=== PATIENT | female | born 1980 | race Caucasian/White ===

== ENCOUNTER → 2019-07-29 10:55 | Outpatient (BNVA) | payer BC, SELFPAY | PROVIDERS: Family Provider Registered Nurse; PCP Registered Nurse; Referring Provider Registered Nurse; Visit Provider Internal Medicine Rheumatology | DX: M65.9 Synovitis and tenosynovitis, unspecified (principal); M25.571 Pain in right ankle and joints of right foot; M54.12 Radiculopathy, cervical region | CPT/HCPCS: 36415; 85651; 86140; 86812; 99204 ==

== ENCOUNTER 2019-08-23 11:26 | Outpatient (CLI) | payer BC, SELFPAY ==
--- NOTE | 2019-08-23 11:35 | XR_ITS ---
WS: [id number] XR cervical spine fl/ex [id number] REASON FOR EXAM: neck pain with headache FINDINGS: The disc spaces and vertebral bodies are all normal. Flexion shows limited flexion extension is normal. XR/XR cervical spine fl/ex [id number] IMPRESSION: Limited flexion changes. The disc spaces and vertebral bodies are all normal.
== END 2019-08-23 11:27 | disposition home or self-care (01) ==
LOC: RAD 11:32
PROVIDERS: Family Provider Registered Nurse; PCP Nurse Practitioner Family; Visit Provider Nurse Practitioner Family
DX: M54.2 Cervicalgia (principal); R51 Headache
CPT/HCPCS: 72040

== ENCOUNTER → 2019-09-27 12:10 | Outpatient (BNVA) | payer BC, SELFPAY | PROVIDERS: Family Provider Registered Nurse; PCP Nurse Practitioner Family; Visit Provider Nurse Practitioner Family | DX: R42 Dizziness and giddiness (principal); H60.93 Unspecified otitis externa, bilateral | CPT/HCPCS: 80053; 81000; 83735; 85025; 87400 ==

== ENCOUNTER → 2019-10-06 15:00 | Outpatient (BNVA) | payer BC, SELFPAY | PROVIDERS: Family Provider Registered Nurse; PCP Nurse Practitioner Family; Visit Provider Nurse Practitioner Family | DX: R42 Dizziness and giddiness (principal); J02.0 Streptococcal pharyngitis; R68.89 Other general symptoms and signs; H66.90 Otitis media, unspecified, unspecified ear; R53.1 Weakness; R39.9 Unspecified symptoms and signs involving the genitourinary system; H60.93 Unspecified otitis externa, bilateral | CPT/HCPCS: 87635 ==

== ENCOUNTER 2020-01-17 14:36 | Outpatient (CLI) | payer MEDICAID, SELFPAY ==
--- NOTE | 2020-01-17 16:00 | MR_ITS ---
WS: [id number] MRI CERVICAL SPINE NONCONTRAST TECHNIQUE: Sagittal T1, T2 and STIR imaging. Axial T2, gradient, and fiesta imaging. CLINICAL INFORMATION: M54.12 Radiculopathy, cervical region COMPARISON: None. FINDINGS: Straightening of the normal cervical lordosis. Cord signal is normal. C2-C3: Mild left and no significant right foraminal narrowing. Spinal canal is patent. C3-C4: Left eccentric osteophytic ridging. Mild left and no significant right foraminal narrowing. Mi ld facet arthropathy. Spinal canal is patent. C4-C5: No significant disc bulging. Spinal canal and foramen are patent. C5-C6: No significant disc bulging. Mild facet arthropathy. Spinal canal and foramen are patent. C6-C7: Mild left eccentric osteophytic ridging. Mild left and no significant right foraminal narrowin g. Spinal canal is patent. C7-T1: Normal. Visualized brain stem structures: Normal. Prevertebral soft tissues: Normal. MR/MR cervical spin wo con* [id number] IMPRESSION: 1. Normal cervical alignment. No high-grade central canal narrowing. Cord sign al is normal. 2. Mild left C3-C4 and left C6-7 bony foraminal narrowing. 3. Minimal disc bulging at C3-C4 and C4-C5 without significant central canal s tenosis.
== END 2020-01-17 14:37 | disposition home or self-care (01) ==
LOC: RADSHAW 14:39
PROVIDERS: PCP Nurse Practitioner Family; Visit Provider Nurse Practitioner Family
DX: M54.12 Radiculopathy, cervical region (principal); M48.02 Spinal stenosis, cervical region; M50.221 Other cervical disc displacement at C4-C5 level
CPT/HCPCS: 72141

== ENCOUNTER → 2020-03-07 15:38 | Outpatient (BNVA) | payer MEDICAID, SELFPAY | PROVIDERS: PCP Nurse Practitioner Family; Visit Provider Family Medicine | DX: R05 Cough (principal); Z20.828 Contact with and (suspected) exposure to other viral communicable diseases | CPT/HCPCS: 87635 ==

== ENCOUNTER → 2020-05-25 15:49 | Outpatient (BNVA) | payer MEDICAID, SELFPAY | PROVIDERS: PCP Nurse Practitioner Family; Visit Provider Internal Medicine | DX: Z20.828 Contact with and (suspected) exposure to other viral communicable diseases (principal); R13.10 Dysphagia, unspecified | CPT/HCPCS: 87635 ==

== ENCOUNTER 2020-05-29 08:20 | Day surgery (SDC) | payer MEDICAID, SELFPAY ==
[2020-05-26 13:43] VITALS: BMI 27.4
[2020-05-29 08:42] VITALS: BP 139/92; PULSE 85; RESP 18; TEMP 36.3; O2SAT 99
[2020-05-29 08:51] LABS: OR HCG Qualitative Urine Negative (Negative)
[2020-05-29] MEDS: sodium chloride 0.9% 1,000 ML 30 ML IV (08:53)
--- NOTE | 2020-05-29 08:59 | ANES.PREANE2 ---
Pre-Anesthetic Assessment Pre-Anesthetic Assessment: Height/Weight: Height 1.57 m Weight 68.039 kg Temp Pulse Resp BP Pulse Ox 97.3 F L 85 18 139/92 99 05/29/20 08:42 05/29/20 08:42 05/29/20 08:42 05/29/20 08:42 05/29/20 08:42 Preop Diagnosis: dysphagia Proposed Procedure: Operation Date: 05/29/20 09:15 Proposed Procedures p EGD 63013 r13.10(Not Applicable) - Gianluca Santos MD Familial anesthetic complications: None Was Beta Elian taken within 24 hours: N/A Last intake: Intake Last Liquid Date 05/28/20 Last Liquid Time 23:50 Last Solid Date 05/28/20 Last Solid Time 18:00 Social: Social History: No alcohol and No tobacco Exam: Pre-Anes Outpt Exam: alert, oriented x 3, clear to auscultation bilaterally and regular rate & rhythm Airway: Cervical ROM: WNL MP: 1 Dentition: Other (lower partial/wire from brace (permanent retainer)) GI: GI: GERD Comments: dysphagia Anesthetic Plan: ASA status: 1 Anesthesia: MAC Risk of > 500 ml blood loss (7ml/kg in children): No Meds/Allergies Current Medications: Current Medications Generic Name Dose Route Start Last Admin Trade Name Freq PRN Reason Stop Dose Admin Sodium Chloride 1,000 mls @ 30 ml s/hr 05/29/20 08:45 05/29/20 08:53 Sodium Chloride 0.9% IV 30 mls/hr .Q24H ERNESTO Administration PFSH Anesthesia PFSH: Medical History Abnormal Pap smear of cervix Allergic reaction Anxiety Arthralgia Breast cancer screening by mammogram Cervical radiculopathy Patient has DDD of cervical spine. She has had previous MRI a couple of years ago. She has headaches and numbness and tingling in both hands/fingers. delivery delivered Dysphagia GERD (gastroesophageal reflux disease) Headache Hearing loss in right ear Otitis externa Pelvic pain Peroneal tendinitis, right leg RMSF ([place] spotted fever) Tenosynovitis of right foot Vertigo Surgical History S/P section X2 S/P tonsillectomy Social History Smoking and tobacco status: never smoked Alcohol intake: never History of recent travel: No Female Reproductive History: Date of last menstrual period: 05/24/20 Data Anesthesia Other Labs: Laboratory Results - last 48 hr 05/29/20 08:34 Urine HCG, Qual Negative Cardiac Studies: No Data to Display
--- NOTE | 2020-05-29 09:37 | W.PM.OPSUD ---
Surgery/Procedure H&P Update DATE OF PROCEDURE: May 29, 2020 DATE H&P PERFORMED: 05/24/20 PREOP DIAGNOSIS: dysphagia PLANNED PROCEDURE: Operation Date: 05/29/20 09:15 Proposed Procedures p EGD 20041 r13.10(Not Applicable) - Gianluca Santos MD
[2020-05-29 10:07] VITALS: BP 148/94; PULSE 85; RESP 18; TEMP 36.4; O2SAT 100
[2020-05-29 10:21] VITALS: BP 114/77; PULSE 74; RESP 18; O2SAT 98
[2020-05-29 10:38] VITALS: BP 124/85; PULSE 80; RESP 18; O2SAT 98
[2020-05-29 10:58] VITALS: BP 126/81; PULSE 70; RESP 18; O2SAT 98
--- NOTE | 2020-05-29 10:59 | SUR.PHASEII ---
1055 Barium swallow scheduled for Jun 07 at 10:45 am. Pt verbalized understanding.
--- NOTE | 2020-05-29 15:12 | ANE.PACU2 ---
Inpatient post-anesthesia follow up: Airway intact: Yes Vital signs: Temperature 97.6 F Pulse Rate 70 Respiratory Rate 18 Blood Pressure 126/81 Pulse Oximetry 98 Oxygen Delivery Me thod Room Air Oxygen Flow Rate 3 Fraction of Inspir ed Oxygen Hydration adequate: Yes Nausea and vomiting: No Pain level: 2 Mental status: Baseline
== END 2020-05-29 11:00 | disposition home or self-care (01) ==
PROVIDERS: Anesthesiology; PCP Nurse Practitioner Family; Visit Provider Internal Medicine
PROC: 0DJ08ZZ Inspection of Upper Intestinal Tract, Via Natural or Artificial Opening Endoscopic (ICD-10-PCS; CPT 43235; principal; 2020-05-29 09:15)
DX: R13.10 Dysphagia, unspecified (principal); K21.9 Gastro-esophageal reflux disease without esophagitis; F41.9 Anxiety disorder, unspecified; Z79.82 Long term (current) use of aspirin
CPT/HCPCS: 12345; 43235; 84703; J2704; J7030

== ENCOUNTER → 2020-06-12 11:19 | Outpatient (BNVA) | payer MEDICAID, SELFPAY | PROVIDERS: PCP Nurse Practitioner Family; Visit Provider Obstetrics & Gynecology | DX: Z12.4 Encounter for screening for malignant neoplasm of cervix (principal) | CPT/HCPCS: 88175 ==

== ENCOUNTER 2020-06-23 08:47 | Outpatient (CLI) | payer MEDICAID, SELFPAY ==
--- NOTE | 2020-06-23 08:50 | FL_ITS ---
WS: [id number] FL barium swallow [id number] REASON FOR EXAM: R13.10 - Dysphagia, unspecified FLUOROSCOPY TIME: .9 minutes FINDINGS: The swallowing of barium was monitored fluoroscopically with spot films obtained. Course of the bariu m through the cervical and thoracic esophagus and into the stomach was monitored fluoroscopically and multiple spot images obtained. The swallowing mechanism appeared intact with no evidence of aspiration or dilatation with retention of barium. The barium flowed rapidly through the cervical and thoracic esophagus and into the stomach without de lay. There was no retention of barium in the esophagus. No hiatal hernia or distal esophageal stricture was identified. No reflux was noted. FL/FL barium swallow [id number] IMPRESSION: Normal examination as above.
== END 2020-06-23 08:48 | disposition home or self-care (01) ==
LOC: RAD 08:48
PROVIDERS: PCP Nurse Practitioner Family; Visit Provider Internal Medicine
DX: R13.10 Dysphagia, unspecified (principal)
CPT/HCPCS: 74220

== ENCOUNTER 2020-07-10 11:43 | Outpatient (CLI) | payer MEDICAID, SELFPAY ==
--- NOTE | 2020-07-10 12:00 | MM_ITS ---
WS: [id number] SCREENING DIGITAL MAMMOGRAM WITH CAD HISTORY: First breast cancer screening COMPARISON: None available. Bilateral CC and MLO views submitted. Computer aided detection analyzed. Breast composition: The breasts are heterogeneously dense, which may obscure small masses. No suspici ous masses, microcalcifications or architectural distortion. MM/[place] [id number] IMPRESSION: BI-RADS: 1-Negative FOLLOW UP: 1 Year Follow-up
== END 2020-07-10 11:44 | disposition home or self-care (01) ==
LOC: RADSHAW 11:46
PROVIDERS: PCP Nurse Practitioner Family; Visit Provider Nurse Practitioner Family
DX: Z12.31 Encounter for screening mammogram for malignant neoplasm of breast (principal)
CPT/HCPCS: 77067

== ENCOUNTER → 2020-07-12 11:54 | Outpatient (BNVA) | payer MEDICAID, SELFPAY | PROVIDERS: PCP Nurse Practitioner Family; Visit Provider Nurse Practitioner Family | DX: D64.9 Anemia, unspecified (principal); Z79.899 Other long term (current) drug therapy; M25.50 Pain in unspecified joint; R53.83 Other fatigue; K21.9 Gastro-esophageal reflux disease without esophagitis; E55.9 Vitamin D deficiency, unspecified; B37.0 Candidal stomatitis | CPT/HCPCS: 80053; 81003; 82306; 82607; 82728; 82746; 83036; 83550; 83735; 84443; 85025; 85651; 86140 ==

== ENCOUNTER 2020-07-27 12:27 | Outpatient (CLI) | payer MEDICAID, SELFPAY ==
--- NOTE | 2020-07-27 12:31 | XR_ITS ---
WS: [id number] Lumbar spine, AP, both obliques, lateral with flexion, extension and neutral position, L5-S1 spot, Clinical Data: M51.36 - Other intervertebral disc degeneration, lumbar region Comparison: None. Findings: No compression fractures or subluxation is seen. No disc space narrowing is seen. The transverse proc esses and SI joints are normal. The oblique films show no spondylolysis. On flexion and extension there is no subluxation or limitation of motion. XR/XR lumbar spine 6V w f/e [id number] Impression: 1. Negative lumbar spine. 2. Negative for spondylolysis on oblique films. 3. Negative for limitation of motion or subluxation on flexion or extension.
== END 2020-07-27 12:28 | disposition home or self-care (01) ==
PROVIDERS: PCP Nurse Practitioner Family; Visit Provider Nurse Practitioner Family
DX: M51.36 Other intervertebral disc degeneration, lumbar region (principal)
CPT/HCPCS: 72114

== ENCOUNTER → 2020-08-01 08:51 | Outpatient (BNVA) | payer MEDICAID, SELFPAY | PROVIDERS: PCP Nurse Practitioner Family; Referring Provider Nurse Practitioner Family; Visit Provider Specialist | DX: R42 Dizziness and giddiness (principal); G43.711 Chronic migraine without aura, intractable, with status migrainosus; R20.0 Anesthesia of skin; R20.2 Paresthesia of skin; G62.9 Polyneuropathy, unspecified; D51.9 Vitamin B12 deficiency anemia, unspecified; F43.10 Post-traumatic stress disorder, unspecified | CPT/HCPCS: 99205 ==

== ENCOUNTER 2020-08-01 11:13 | Outpatient (CLI) | payer MEDICAID, SELFPAY ==
[2020-08-01 12:40] LABS: C Reactive Protein 1.1 mg/L (0.0-4.9); Folate Level 17.3 ng/mL (4.8-37.3); Thyroid Stimulating Hormone 1.32 uIU/mL (0.27-4.20); Vitamin B12 560 pg/mL (232-1245)
[2020-08-01 14:05] LABS: Erythrocyte Sedimentation Rate 19 mm/hr (0-15)
[2020-08-02 14:03] LABS: CENTROMERE B ANTIBODY <1.0 NEG AI (<1.0 NEG); JO-1 ANTIBODY <1.0 NEG AI (<1.0 NEG); RNP ANTIBODY <1.0 NEG AI (<1.0 NEG); SCL-70 ANTIBODY <1.0 NEG AI (<1.0 NEG); SJOGREN'S ANTIBODY (SS-A) <1.0 NEG AI (<1.0 NEG); SM ANTIBODY <1.0 NEG AI (<1.0 NEG); SS-B <1.0 NEG AI (<1.0 NEG)
[2020-08-02 14:34] LABS: COMPLEMENT, TOTAL (CH50) >60 U/mL (31-60)
[2020-08-02 14:48] LABS: COMPLEMENT COMPONENT C3C 134 mg/dL (83-193); COMPLEMENT COMPONENT C4C 31 mg/dL (15-57)
[2020-08-02 16:04] LABS: THYROID PEROXIDASE ANTIBODIES 1 IU/mL (<9)
[2020-08-03 13:29] LABS: ANA SCREEN, IFA NEGATIVE (NEGATIVE)
[2020-08-04 12:59] LABS: Methylmalonic Acid 79 nmol/L (87-318)
[2020-08-05 00:39] LABS: DNA AB (DS) CRITHIDIA,IFA NEGATIVE (NEGATIVE)
== END 2020-08-01 11:14 | disposition home or self-care (01) ==
LOC: LAB 11:15
PROVIDERS: PCP Nurse Practitioner Family; Visit Provider Specialist
DX: D51.9 Vitamin B12 deficiency anemia, unspecified (principal); G62.9 Polyneuropathy, unspecified
CPT/HCPCS: 36415; 82607; 82746; 83921; 84443; 85651; 86140

== ENCOUNTER → 2020-08-29 07:55 | Outpatient (BNVA) | payer MEDICAID, SELFPAY | PROVIDERS: PCP Nurse Practitioner Family; Visit Provider Specialist | DX: R20.0 Anesthesia of skin (principal); R20.2 Paresthesia of skin; E55.9 Vitamin D deficiency, unspecified; M54.2 Cervicalgia; G89.29 Other chronic pain; M54.12 Radiculopathy, cervical region | CPT/HCPCS: 95910; 95913 ==

== ENCOUNTER 2020-09-04 10:52 | Outpatient (CLI) | payer MEDICAID, SELFPAY ==
--- NOTE | 2020-09-04 11:00 | MR_ITS ---
WS: [id number] MRI CERVICAL SPINE NONCONTRAST HISTORY: M54.12 - Radiculopathy, cervical region COMPARISON: 01/17/2020. Technique: Multiplanar, multisequence noncontrast imaging of the cervical spine. Normal cervical alignment with no compression fracture or significant disc space narrowing. Signal within the cervical cord is normal. Visualized posterior fossa is unremarkable. Craniocervical junction, C1 and C2 relationship, odontoid process and soft tissues are normal. C2-C3: Very mild narrowing of the LEFT foramen. C3-C4: Small osteophyte in the LEFT foramen. No significant stenosis. C4-C5: Minimal osteophytic ridging greater to the LEFT. No stenosis. C5-C6: Normal. C6-C7: Mild asymmetric osteophytic ridging greatest to the LEFT. No significant stenosis. C7-T1: Normal. Paraspinal soft tissue are normal. MR/MR cervical spin wo con* [id number] IMPRESSION: 1. No significant central or foraminal stenosis. 2. Small foraminal osteophytes greatest on the LEFT at C3-4 and C6-7. Similar to the prior study with no significant stenosis.
== END 2020-09-04 10:53 | disposition home or self-care (01) ==
LOC: RADSHAW 10:53
PROVIDERS: PCP Nurse Practitioner Family; Visit Provider Nurse Practitioner Family
DX: M54.12 Radiculopathy, cervical region (principal); M25.78 Osteophyte, vertebrae
CPT/HCPCS: 72141

== ENCOUNTER 2020-09-04 10:55 | Outpatient (CLI) | payer MEDICAID, SELFPAY ==
--- NOTE | 2020-09-04 11:45 | MR_ITS ---
WS: [id number] MRI BRAIN WITHOUT CONTRAST HISTORY: R42 - Dizziness and giddiness COMPARISON: None available. TECHNIQUE: Diffusion imaging, multiplanar T1, T2 and FLAIR imaging obtained. No evidence for acute infarct or hemorrhage. Santamaria-white matter differentiation is normal. No remote or acute infarcts are volume loss. Ventricles and extra-axial spaces are normal. No inferior displacement of cerebellar tonsils. The sella turcica and pituitary gland are unremarkabl e. Posterior fossa is also unremarkable. Dural venous sinuses and hughes of Vela demonstrate no abnormality on this unenhanced studies. Paranasal sinuses: Clear. Mastoid air cells: Normal. Calvarium and scalp: Intact. MR/MR head wo con* [id number] IMPRESSION: 1. Unremarkable noncontrast MRI brain. 2. No posterior fossa abnormalities or Chiari malformation.
== END 2020-09-04 10:56 | disposition home or self-care (01) ==
LOC: RADSHAW 10:56
PROVIDERS: PCP Nurse Practitioner Family; Visit Provider Specialist
DX: R42 Dizziness and giddiness (principal)
CPT/HCPCS: 70551

== ENCOUNTER 2020-09-05 06:00 | Outpatient (RCR) | payer MEDICAID, SELFPAY | END 2020-10-04 23:59 | disposition home or self-care (01) | LOC: WPT 06:00 | PROVIDERS: PCP Nurse Practitioner Family; Referring Provider Nurse Practitioner Family; Visit Provider Nurse Practitioner Family | DX: M54.2 Cervicalgia (principal); G89.29 Other chronic pain | CPT/HCPCS: 97110; 97161 ==

== ENCOUNTER → 2020-09-07 08:10 | Outpatient (BNVA) | payer MEDICAID, SELFPAY | PROVIDERS: PCP Nurse Practitioner Family; Visit Provider Specialist | DX: R20.0 Anesthesia of skin (principal); R20.2 Paresthesia of skin; M54.2 Cervicalgia; G89.29 Other chronic pain; F43.10 Post-traumatic stress disorder, unspecified; G43.711 Chronic migraine without aura, intractable, with status migrainosus | CPT/HCPCS: 99214 ==

== ENCOUNTER 2020-10-05 06:00 | Outpatient (RCR) | payer MEDICAID, SELFPAY | END 2020-11-03 23:59 | disposition home or self-care (01) | LOC: WPT 06:00 | PROVIDERS: PCP Nurse Practitioner Family; Referring Provider Nurse Practitioner Family; Visit Provider Nurse Practitioner Family | DX: M54.2 Cervicalgia (principal); G89.29 Other chronic pain | CPT/HCPCS: 97110 ==

== ENCOUNTER → 2020-10-06 08:53 | Outpatient (BNVA) | payer MEDICAID, SELFPAY | PROVIDERS: PCP Nurse Practitioner Family; Referring Provider Nurse Practitioner Family; Visit Provider Orthopaedic Surgery | DX: R20.0 Anesthesia of skin (principal); R20.2 Paresthesia of skin; M54.2 Cervicalgia; G89.29 Other chronic pain | CPT/HCPCS: 72050 ==

== ENCOUNTER → 2020-11-18 13:19 | Outpatient (BNVA) | payer MEDICAID, SELFPAY | PROVIDERS: PCP Nurse Practitioner Family; Visit Provider Nurse Practitioner Family | DX: U07.1 COVID-19 (principal) | CPT/HCPCS: 87635 ==

== ENCOUNTER → 2021-02-13 15:45 | Outpatient (BNVA) | payer MEDICAID, SELFPAY | PROVIDERS: PCP Nurse Practitioner Family; Visit Provider Nurse Practitioner Family | DX: Z20.822 Contact with and (suspected) exposure to COVID-19 (principal); J06.9 Acute upper respiratory infection, unspecified | CPT/HCPCS: 87426 ==

== ENCOUNTER → 2021-03-28 10:46 | Outpatient (BNVA) | payer MEDICAID, SELFPAY | PROVIDERS: PCP Nurse Practitioner Family; Visit Provider Nurse Practitioner Family | DX: D51.9 Vitamin B12 deficiency anemia, unspecified (principal); E55.9 Vitamin D deficiency, unspecified | CPT/HCPCS: 82306; 82607; 82746; 83921; 85025 ==

== ENCOUNTER → 2021-07-24 15:16 | Outpatient (BNVA) | payer MEDICAID, SELFPAY | PROVIDERS: PCP Nurse Practitioner Family; Visit Provider Nurse Practitioner Family | DX: G43.711 Chronic migraine without aura, intractable, with status migrainosus (principal); D64.9 Anemia, unspecified; R53.83 Other fatigue; Z79.899 Other long term (current) drug therapy; E55.9 Vitamin D deficiency, unspecified; Z13.6 Encounter for screening for cardiovascular disorders | CPT/HCPCS: 80053; 80061; 81003; 82306; 82607; 83036; 83921; 84443; 85025 ==

== ENCOUNTER → 2021-07-31 13:58 | Outpatient (BNVA) | payer MEDICAID, SELFPAY | PROVIDERS: PCP Nurse Practitioner Family; Visit Provider Nurse Practitioner Family | DX: Z20.822 Contact with and (suspected) exposure to COVID-19 (principal) | CPT/HCPCS: 87635 ==

== ENCOUNTER → 2021-08-21 14:29 | Outpatient (BNVA) | payer MEDICAID, SELFPAY | PROVIDERS: PCP Nurse Practitioner Family; Visit Provider Family Medicine | DX: R06.2 Wheezing (principal); M79.662 Pain in left lower leg | CPT/HCPCS: 71046; 80053; 84145; 85025; 86140 ==

== ENCOUNTER 2022-03-15 17:56 | Emergency (ER) | payer MEDICAID, SELFPAY ==
[2022-03-15 18:00] VITALS: BP 123/85; PULSE 116; RESP 16; TEMP 36.7; O2SAT 97; BMI 26.9
--- NOTE | 2022-03-15 19:50 | CTR_ITS ---
PROCEDURE INFORMATION: Exam: CT Abdomen And Pelvis With Contrast Exam date and time: 03/15/2022 9:09 PM Age: 41 years old Clinical indication: Nausea and vomiting; Additional info: Abd pain diarrhea TECHNIQUE: Imaging protocol: Computed tomography of the abdomen and pelvis with contrast. Radiation optimization: All CT scans at this facility use at least one of these dose optimization techniques: automated exposure control; mA and/or kV adjustment per patient size (includes targeted exams where dose is matched to clinical indication); or iterative reconstruction. Contrast material: OMNI 350; Contrast volume: 80 ml; Contrast route: INTRAVENOUS (IV); COMPARISON: CR XR chest 2V* [id number] 08/21/2021 2:32 PM RADIATION DOSE METRICS: Total DLP (mGy-cm): 481.32 FINDINGS: Liver: Normal. No mass. Gallbladder and bile ducts: Normal. No calcified stones. No ductal dilation. Pancreas: Normal. No ductal dilation. Spleen: Normal. No splenomegaly. Adrenal glands: Normal. No mass. Kidneys and ureters: Hypodensity in the right kidney is too small to characterize but is most likely a cyst. The kidneys are otherwise unremarkable. No calculus or hydronephrosis. There is anterior rotation of the bilateral kidneys, a normal variant. Stomach and bowel: Unremarkable. No obstruction. No mucosal thickening. The transverse and distal colon are decompressed. Appendix: The appendix is visualized and is normal. Intraperitoneal space: Unremarkable. No free air. No significant fluid collection. Vasculature: Unremarkable. No abdominal aortic aneurysm. Lymph nodes: Unremarkable. No enlarged lymph nodes. Urinary bladder: Unremarkable as visualized. Reproductive: Unremarkable as visualized. Bones/joints: Unremarkable. No acute fracture. Soft tissues: Unremarkable. CT/CT abdomen pelvis w con* [id number] IMPRESSION: 1. No acute findings in the abdomen or pelvis. COMMENTS: Consistent with the [employer]'s Incidental Findings Committee white paper (J Am Tala Radiol 2018): Any incidental renal lesion less than 1 cm or classified as too small to characterize, or any incidental cystic renal lesion characterized as simple-appearing, is likely benign. No follow-up imaging is recommended for these lesions per consensus recommendations based on imaging criteria.
[2022-03-15 19:52] LABS: HCG Qualitative Urine. Negative (Negative)
--- NOTE | 2022-03-15 19:52 | ED_ITS ---
HPI - Nausea/Vomiting/Diarrhea General: Chief complaint: Nausea/Vomiting/Diarrhea Stated complaint: N/V/D Time Seen by Provider: 03/15/22 19:34 Source: patient History of Present Illness: 41-year-old female, essentially healthy, presenting with 11 days of diarrhea. She notes she has crampy abdominal pain that is diffuse associated with her diarrhea. She threw up on the first day but not since. No blood in the stool. No previous history of belly surgery no new medications. Her son was sick with the diarrhea for a few days as well, but not nearly this long. MD elicited complaint: nausea, diarrhea and abdominal pain Onset (ago): day(s) (11) Description of diarrhea: watery Associated nausea: Yes Associated abdominal pain: Yes Location of pain: Diffuse Radiation: diffuse Pain consistency: intermittent Severity: moderate Quality: cramping Relieving factors: none Associated symtoms: Reports dizziness, anorexia, nausea and short of breath; Denies altered mental status, chest pain, fevers/chills or headache(s) Review of Systems Const: Denies: fever(s) ENMT: Denies: throat pain Card: Denies: chest pain Resp: Reports: dyspnea (mild); Denies: productive cough or non-productive cough GI: Reports: abdominal pain, nausea, vomiting and diarrhea : Denies: difficulty voiding Neuro: Reports: dizziness; Denies: headache(s) PFS ED PFSH: Medical History Abnormal Pap smear of cervix Anemia Anxiety Cervical radiculopathy Patient has DDD of cervical spine. She has had previous MRI a couple of years ago. She has headaches and numbness and tingling in both hands/fingers. Chronic neck pain Dysphagia Fatigue GERD (gastroesophageal reflux disease) Headache Hearing loss in right ear Hypertension screen Hypokalemia Joint pain Medication management Nausea Oral yeast infection Otitis media of both ears Pelvic pain Peroneal tendinitis, right leg RMSF ([place] spotted fever) Shortness of breath Upper respiratory tract infection Vertigo Vertigo Vitamin B12 deficiency anemia Vitamin D deficiency Surgical History S/P section X2 S/P tonsillectomy Social History Smoking and tobacco status: never smoked Alcohol intake: current Alcohol intake frequency: holidays/special occasions only History of recent travel: No Female Reproductive History: Date of last menstrual period: 03/01/22 Physical Exam Const: EXAM LIMITATIONS: no altered mental status GENERAL APPEARANCE: cooperative and ill appearing (mildly); not frail appearing HENMT: COMMON NORMALS: normocephalic, atraumatic and Normal external nose present HEAD & SCALP: normocephalic and atraumatic FACE & SINUS: normal facial exam and face symmetric NOSE: Normal external nose present Eye: COMMON NORMALS: Equal, round and reactive pupils present and EOMs intact bilaterally PUPIL: Yes Equal, round and reactive pupils present Neck/C-Spine: GENERAL: Yes trachea midline Chest: CHEST: Yes Symmetrical chest wall rise Resp: COMMON NORMALS: normal respiratory effort, No retractions, No use of accessory muscles and clear to auscultation bilaterally AUSCULTATION: clear to auscultation bilaterally Cardio: COMMON NORMALS: regular rate and regular rhythm RATE: regular rate RHYTHM: regular rhythm GI: COMMON NORMALS: Normal to inspection, nondistended, normoactive bowel sounds present Extremity: COMMON NORMALS: no pedal edema Neuro: LORENZO COMA SCALE: document GCS findings [place] coma scale eye opening: Spontaneous [place] coma scale verbal response: Orientated [place] coma scale motor response: Obey commands [place] coma scale total score: 15 SENSORY EXAM: Yes extremities (intact) Psych: COMMON NORMALS: speech normal SPEECH: Yes normal speech Skin: COMMON NORMALS: no rashes or lesions noted GENERAL SKIN EXAM: no rashes or lesions noted Course Vital Signs: Vital signs: Vital Signs Temperature 98.0 F 03/15/22 18:00 Pulse Rate 116 H 03/15/22 18:00 Respiratory Rate 16 03/15/22 18:00 Blood Pressure 123/85 03/15/22 18:00 Pulse Oximetry 97 03/15/22 18:00 Oxygen Delivery Me thod 03/15/22 18:00 MDM - Nausea/Vomiting/Diarrhea Medical Decision Making CBC is normal. BMP is not remarkable. CT does not reveal a cause of diarrhea. She is encouraged to leave a stool sample prior to discharge. She will be pl aced on Flagyl given the duration of her symptoms. She was informed that a probiotic and fiber may help as well. She will be given Lomotil for symptom control. Outpatient follow-up. Lab Data : 03/15/22 20:19 03/15/22 20:19 Radiology Impressions Abdomen/Pelvis CT 03/15/22 19:50 IMPRESSION: 1. No acute findings in the abdomen or pelvis. COMMENTS: Consistent with the [employer]'s Incidental Findings Committee white paper (J Am Tala Radiol 2018): Any incidental renal lesion less than 1 cm or classified as too small to characterize, or any incidental cystic renal lesion characterized as simple-appearing, is likely benign. No follow-up imaging is recommended for these lesions per consensus recommendations based on imaging criteria. Laboratory Results WBC 8.3 10^3/uL (4.0-10.0) 03/15/22 20:19 RBC 4.42 10^6/uL (4.1-5.3) 03/15/22 20:19 Hgb 12.6 g/dL (11.5-15.3) 03/15/22 20:19 Hct 38.5 % (37.0-47.0) 03/15/22 20:19 MCV 87.1 fl (81-99) 03/15/22 20:19 MCH 28.5 pg (28.0-34.0) 03/15/22 20:19 MCHC 32.7 g/dL (30.0-36.0) 03/15/22 20:19 RDW 12.9 % (12.1-15.1) 03/15/22 20:19 Plt Count 310 10^3/cmm (130-400) 03/15/22 20:19 MPV 10.0 fL (7.4-10.4) 03/15/22 20:19 Neut % (Auto) 57.2 % 03/15/22 20:19 Lymph % (Auto) 32.6 % 03/15/22 20:19 [place] % (Auto) 8.2 % 03/15/22 20:19 Eos % (Auto) 1.3 % 03/15/22 20:19 Baso % (Auto) 0.5 % 03/15/22 20:19 Neut # (Auto) 4.71 10^3/uL (1.8-7.7) 03/15/22 20:19 Lymph # (Auto) 2.7 10^3/uL (0.8-4.8) 03/15/22 20:19 [place] # (Auto) 0.7 10^3/uL (0.2-0.9) 03/15/22 20:19 Eos # (Auto) 0.1 10^3/uL (0.0-0.8) 03/15/22 20:19 Baso # (Auto) 0.0 10^3/uL (0.0-0.1) 03/15/22 20:19 Nucleated RBC % (auto) 0 % 03/15/22 20:19 Nucleated RBCs # 0.0 /100WBC 03/15/22 20:19 Sodium 134 mmol/L (136-145) L 03/15/22 20:19 Potassium 3.4 mmol/L (3.5-5.1) L 03/15/22 20:19 Chloride 100 mmol/L (98-107) 03/15/22 20:19 Carbon Dioxide 25 mmol/L (22-29) 03/15/22 20:19 Anion Gap 12.4 (5-19) 03/15/22 20:19 BUN 10 mg/dL (6-20) 03/15/22 20:19 Creatinine 0.6 mg/dL (0.5-0.9) 03/15/22 20:19 GFR Calculation 110.2 mL/min (90-130) 03/15/22 20:19 Glucose 88 mg/dL (65-115) 03/15/22 20:19 Calculated Osmolality 276 mOsm/kg (285-295) L 03/15/22 20:19 Calcium 8.8 mg/dL (8.5-10.5) 03/15/22 20:19 Total Bilirubin 0.2 mg/dL (0.15-1.2) 03/15/22 20:19 AST 14 U/L (0-32) 03/15/22 20:19 ALT 10 U/L (0-33) 03/15/22 20:19 Alkaline Phosphatase 94 U/L (35-105) 03/15/22 20:19 Total Protein 6.7 g/dL (6.6-8.7) 03/15/22 20:19 Albumin 4.0 g/dL (3.5-5.2) 03/15/22 20:19 Globulin 2.7 g/dL (1.3-4.6) 03/15/22 20:19 HCG, Qual Negative (Negative) 03/15/22 20:19 Urine Color Yellow (Yellow) 03/15/22 19:30 Urine Appearance Clear (CLEAR) 03/15/22 19:30 Urine pH 5 (5-7) 03/15/22 19:30 Ur Specific [place] 1.020 (1.005-1.030) 03/15/22 19:30 Urine Protein Neg (Negative) 03/15/22 19:30 Urine Glucose (UA) Norm (Normal) 03/15/22 19:30 Urine Ketones Negative (Negative) 03/15/22 19:30 Urine Blood Neg (Negative) 03/15/22 19:30 Urine Nitrate Negative (Negative) 03/15/22 19:30 Urine Bilirubin Neg (Negative) 03/15/22 19:30 Urine Urobilinogen Neg mg/dL (Negative) 03/15/22 19:30 Ur Leukocyte Esterase Negative (Negative) 03/15/22 19:30 Discharge Plan Discharge Patient Disposition: Home Clinical Impression: Diarrhea Condition: Stable Prescriptions: New ondansetron 4 mg film 4 mg PO DAILY PRN (Reason: nausea and vomiting) Qty: 10 0RF metronidazole 500 mg tablet 500 mg PO BID 7 Days Qty: 14 0RF Lomotil 2.5-0.025 mg tablet 1 tab PO BID PRN (Reason: diarrhea) Qty: 10 0RF No Action doxycycline hyclate 100 mg capsule 100 mg PO BID 5 Days Qty: 10 0RF prednisone 20 mg tablet 20 mg PO BID 5 Days Qty: 10 0RF epinephrine [EpiPen 2-Chang] 0.3 mg/0.3 mL auto-injector 0.3 mg IM Q10M PRN (Reason: anaphylaxis) 30 Days Qty: 2 0RF Rx Instructions: for 2 doses gabapentin 300 mg capsule PO meclizine 25 mg tablet 25 mg PO TID PRN (Reason: vertigo) 14 Days Qty: 30 0RF ondansetron HCl [Zofran] 4 mg tablet 4 mg PO Q8H PRN (Reason: nausea and vomiting) 5 Days Qty: 20 0RF [id number]-[id number]-ekqs [Fioricet] 50-300-40 mg capsule 1 cap PO Q6H PRN (Reason: pain) Qty: 30 0RF cholecalciferol (vitamin D3) 1,250 mcg (50,000 unit) capsule 50,000 unit PO .dianne Qty: 4 2RF cyanocobalamin (vitamin B-12) 1,000 mcg/mL solution 1,000 mcg IM .weekly 30 Days Qty: 4 0RF pantoprazole 40 mg tablet,delayed release (DR/EC) See Rx Instructions .ROUTE .COMPLEX Qty: 30 5RF Dose Instruction: TAKE 1 TABLET BY MOUTH EVERY MORNING Rx Instructions: TAKE 1 TABLET BY MOUTH EVERY MORNING potassium chloride 10 mEq capsule, extended release 10 meq PO DAILY 30 Days Qty: 30 0RF albuterol sulfate [Ventolin HFA] 90 mcg/actuation HFA aerosol inhaler 1 inh inhalation QID PRN (Reason: shortness of breath or wheezing) Qty: 6.7 0RF budesonide-formoterol [Symbicort] 160-4.5 mcg/actuation HFA aerosol inhaler 2 inh inhalation BID 30 Days Qty: 10.2 5RF meloxicam 15 mg tablet See Rx Instructions .ROUTE .COMPLEX Qty: 90 1RF Dose Instruction: TAKE 1 TABLET BY MOUTH EVERY DAY Rx Instructions: TAKE 1 TABLET BY MOUTH EVERY DAY topiramate [Topamax] 50 mg tablet 50 mg PO DAILY 30 Days Qty: 90 3RF venlafaxine 150 mg capsule,extended release 24hr See Rx Instructions .ROUTE .COMPLEX Qty: 30 0RF Dose Instruction: TAKE 1 CAPSULE BY MOUTH EVERY DAY Rx Instructions: TAKE 1 CAPSULE BY MOUTH EVERY DAY Discharge Orders: Discharge ED (Routine); Ordered 03/15/22 Ordered By: Hany Burks Referrals: SHANNA Mcneal, FRONT OFFICE SPEC [Primary Care Provider] - 1-3 days Discharge Diet: Advance as tolerated Discharge Activity: Increase activity as tolerated Patient Instructions: Diarrhea - Adult, Opioid Safety Activity Restrictions/Additional Instructions: Medication as directed. Take the antibiotic as directed. A probiotic medica tion [id number] may help as well. Fiber supplementation can help also. Take the Lomotil as needed for continued diarrhea. Return for any vomiting of liquids or medications, fever greater than 100, worsening pain, any other concerning symptoms. Coding Level of Care Code ED Non Destructive Testing Inspector for Chg Fwd Exam Comprehensive
[2022-03-15 20:01] LABS: Add Urine Microscopic? NO; Charge for UA Resulting for Rev
[2022-03-15 20:11] LABS: Urine Appearance Clear (CLEAR); Urine Color Yellow (Yellow)
[2022-03-15 20:12] LABS: Bilirubin Urine Neg (Negative); Blood Urine Neg (Negative); Glucose Urine UA Norm (Normal); Ketones Urine Negative (Negative); Leukocyte Esterase Urine Negative (Negative); Nitrate Urine Negative (Negative); Protein Urine Neg (Negative); Urobilinogen Urine Neg (Negative); pH Urine 5 (5-7)
[2022-03-15 20:26] LABS: Basophils % 0.5 %; Eosinophils # 0.1 10^3/uL (0.0-0.8); Eosinophils % 1.3 %; Hematocrit 38.5 % (37.0-47.0); Hemoglobin 12.6 g/dL (11.5-15.3); Lymphocytes # 2.7 10^3/uL (0.8-4.8); Lymphocytes % 32.6 %; Mean Corpuscular HGB Conc 32.7 g/dL (30.0-36.0); Mean Corpuscular Hemoglobin 28.5 pg (28.0-34.0); Mean Corpuscular Volume 87.1 fl (81-99); Monocytes # 0.7 10^3/uL (0.2-0.9); Monocytes % 8.2 %; Neutrophils # 4.71 10^3/uL (1.8-7.7); Neutrophils % 57.2 %; Nucleated Red Blood Cells % 0 %; Platelet Count 310 10^3/cmm (130-400); Red Blood Count 4.42 10^6/uL (4.1-5.3); Red Cell Distribution Width 12.9 % (12.1-15.1); White Blood Count 8.3 10^3/uL (4.0-10.0)
[2022-03-15 20:46] LABS: HCG, Serum Qual Negative (Negative)
[2022-03-15 20:50] LABS: Alanine Aminotransferase 10 U/L (0-33); Alkaline Phosphatase 94 U/L (35-105); Anion Gap 12.4 (5-19); Aspartate Amino Transferase 14 U/L (0-32); Blood Urea Nitrogen 10 mg/dL (6-20); Calcium 8.8 mg/dL (8.5-10.5); Carbon Dioxide 25 mmol/L (22-29); Chloride 100 mmol/L (98-107); Globulin 2.7 g/dL (1.3-4.6); Glomerular Filtration Rate 110.2 mL/min (90-130); Glucose 88 mg/dL (65-115); Osmolality Calculated 276 mOsm/kg (285-295); Potassium 3.4 mmol/L (3.5-5.1); Sodium 134 mmol/L (136-145); Total Bilirubin 0.2 mg/dL (0.15-1.2); Total Protein 6.7 g/dL (6.6-8.7)
[2022-03-15] MEDS: ondansetron 2 mg/ML SDV 2 mL 8 MG IVP (21:06)
[2022-03-15] MEDS: sodium chloride 0.9% 1,000 ML 999 ML IV (21:06)
[2022-03-15] MEDS: iohexol 350 mg/mL 100 mL Btl 80 ML IV (21:09)
== END 2022-03-15 22:46 | disposition home or self-care (01) ==
PROVIDERS: Emergency Medicine; Emergency Provider Emergency Medicine; PCP Nurse Practitioner Family
DX: R19.7 Diarrhea, unspecified (principal)
CPT/HCPCS: 36415; 74177; 80053; 81003; 81025; 84703; 85025; 96361; 96374; 99285; J2405; J7030; Q9967

== ENCOUNTER → 2022-03-18 09:25 | Outpatient (BNVA) | payer MEDICAID, SELFPAY | PROVIDERS: PCP Nurse Practitioner; Visit Provider Nurse Practitioner | DX: R19.7 Diarrhea, unspecified (principal) | CPT/HCPCS: 86003; 86008; 87177; 87209; 87506 ==

== ENCOUNTER 2022-04-26 10:38 | Outpatient (CLI) | payer MEDICAID, SELFPAY ==
--- NOTE | 2022-04-26 11:00 | US_ITS ---
WS: [id number] RIGHT UPPER QUADRANT ULTRASOUND HISTORY: abdominal pain COMPARISON: None available. Liver: 15.2 cm in length. Normal size liver. No bile duct dilatation or mass. Portal Vein: Normal hepatopetal flow with monophasic waveform. Gallbladder: Normally distended gallbladder with no stones or wall thickening. CBD: 0.4 cm Pancreas: Normal size and echogenicity. Right kidney: 8.7 cm in length. Normal size and echogenicity. No hydronephrosis or mass. Aorta and IVC: Unremarkable abdominal aorta and IVC. No ascites. US/US gall bladder [id number] IMPRESSION: Normal RIGHT upper quadrant ultrasound.
== END 2022-04-26 10:39 | disposition home or self-care (01) ==
LOC: RAD 10:39
PROVIDERS: PCP Nurse Practitioner; Visit Provider Surgery
DX: R10.9 Unspecified abdominal pain (principal)
CPT/HCPCS: 76705

== ENCOUNTER → 2022-05-14 10:01 | Outpatient (BNVA) | payer MEDICAID, SELFPAY | PROVIDERS: PCP Nurse Practitioner; Visit Provider Nurse Practitioner | DX: R00.2 Palpitations (principal) | CPT/HCPCS: 80053; 84443; 85025 ==

== ENCOUNTER 2022-05-22 07:49 | Outpatient (CLI) | payer MEDICAID, SELFPAY ==
--- NOTE | 2022-05-22 08:00 | NM_ITS ---
WS: [id number] NUCLEAR MEDICINE HIDA SCAN CLINICAL INFORMATION: Abd pain TECHNIQUE: Following intravenous administration of 5.1 mCi of technetium 99m mebrofenin, images of th e abdomen were obtained over the course of 60 minutes. Next, gallbladder ejection fraction was determ ined by obtaining preprandial and one-hour postprandial images of the gallbladder following oral etelvina stion of Ensure. COMPARISON: Ultrasound April 26, 2022 FINDINGS: Normal hepatic uptake at 5 minutes. Gallbladder is visualized by 30 minutes. No evidence of acute cho lecystitis. Normal common bile duct and small bowel activity. Gallbladder ejection fraction 90% within normal limits. No evidence of chronic cholecystitis. NM/NM hepatobiliary w phar* [id number] IMPRESSION: Normal HIDA scan
== END 2022-05-22 07:50 | disposition home or self-care (01) ==
LOC: RAD 07:51
PROVIDERS: PCP Nurse Practitioner; Visit Provider Surgery
DX: R10.9 Unspecified abdominal pain (principal)
CPT/HCPCS: 78227; A9537

== ENCOUNTER 2022-06-14 07:28 | Day surgery (SDC) | payer MEDICAID, SELFPAY ==
[2022-06-12 09:09] VITALS: BMI 25.9
[2022-06-14 08:00] VITALS: BP 132/79; PULSE 90; RESP 18; TEMP 36.6; O2SAT 99
[2022-06-14] MEDS: sodium chloride 0.9% 1,000 ML 30 ML IV (08:05)
[2022-06-14 08:07] LABS: OR HCG Qualitative Urine Negative (Negative)
--- NOTE | 2022-06-14 08:07 | ANES.PREANE2 ---
Pre-Anesthetic Assessment Height/Weight: Height 1.68 m Weight 64.41 kg Temp Pulse Resp BP Pulse Ox O2 Del Method 97.8 F 90 18 132/79 99 06/14/22 08:00 06/14/22 08:00 06/14/22 08:00 06/14/22 08:00 06/14/22 08:00 06/14/22 08:00 Preop Diagnosis: Chronic diarrhea/abdominal pain Operation Date: 06/14/22 09:00 Proposed Procedures p EGD and colonoscopy 52536,06372,K21.9,R13.10,R19.7(Not Applicable) - Philip Kowalski MD s Colonoscopy(Not Applicable) - Philip Kowalski MD Familial anesthetic complications: none Was Beta Elian taken within 24 hours: N/A Was Clonidine taken within 24 hours: N/A Last intake: Intake Last Liquid Date 06/13/22 Last Liquid Time 23:00 Last Solid Date 06/12/22 Last Solid Time 20:00 Social No alcohol and No tobacco Exam alert, oriented x 3, clear to auscultation bilaterally and regular rate & rhythm Airway Submandibular: within normal limits Cervical ROM: within normal limits Mallampati: Class I Dentition: full Pulmonary Cough COVID in July CV/HEM None reported None reported Hepatic None reported GI Gastroesophageal Reflux Disease Metabolic None reported Musc/skel None reported Neuropsych None reported Anesthetic Plan ASA status: 2 Anesthesia: MAC Medications/Allergies Home Medications Medication Instructions Recorded Confirmed Last Taken Type meclizine 25 mg tablet 25 mg PO TID PRN vertigo 14 days 05/08/21 06/14/22 06/13/22 Rx #30 tabs albuterol sulfate 90 mcg/actuation 1 inh inhalation QID PRN shortness 07/31/21 06/14/22 Unknown Rx aerosol inhaler (Ventolin HFA) of breath or wheezing #6.7 grams budesonide-formoterol HFA 160 2 inh inhalation BID 30 days #10.2 09/13/21 06/14/22 06/13/22 Rx mcg-4.5 mcg/actuation aerosol grams inhaler (Symbicort) meloxicam 15 mg tablet See Rx Instructions .Route 10/02/21 06/14/22 06/13/22 Rx .COMPLEX #90 tabs vgzfolnqka-upvgrnhbbidem-zgbssvch 1 cap PO Q6H PRN pain #30 caps 11/30/21 06/14/22 06/13/22 Rx 50 mg-300 mg-40 mg capsule (Fioricet) topiramate 50 mg tablet (Topamax) 50 mg PO DAILY 30 days #90 tabs 12/14/21 06/14/22 06/13/22 Rx venlafaxine 150 mg See Rx Instructions .Route 12/17/21 06/14/22 06/13/22 Rx capsule,extended release 24 hr .COMPLEX #30 caps diphenoxylate-atropine 2.5 1 tab PO BID PRN diarrhea #10 tabs 03/15/22 06/14/22 06/13/22 Rx mg-0.025 mg tablet (Lomotil) peg 3350-electrolytes 236 240 ml PO Q10M #4,000 mL 04/03/22 06/14/22 06/13/22 Rx gram-22.74 gram-6.74 gram-5.86 gram solution (Golytely) ondansetron HCl 4 mg tablet 4 mg PO Q6H PRN nausea and 04/29/22 06/14/22 06/13/22 Rx vomiting #30 tabs pantoprazole 40 mg tablet,delayed See Rx Instructions .Route 05/16/22 06/14/22 06/13/22 Rx release .COMPLEX #120 tabs Allergies Allergy/AdvReac Type Severity Reaction Status Date / Time aspirin Allergy unknown Verified 06/14/22 07:55 azithromycin Allergy hives Verified 06/14/22 07:55 [From Zithromax Z-Chang] meperidine [From Demerol] Allergy Unknown Verified 06/14/22 07:55 Opioids - Morphine Analogues Allergy unknown Verified 06/14/22 07:55 Penicillins Allergy unknown Verified 06/14/22 07:55 Current Medications Generic Name Dose Route Start Last Admin Trade Name Freq PRN Reason Stop Dose Admin Sodium Chloride 1,000 mls @ 30 mls/hr 06/14/22 07:45 06/14/22 08:05 Sodium Chloride 0.9% IV 30 mls/hr .Q24H ERNESTO Administration PFSH Anesthesia Medical History Abnormal Pap smear of cervix Anemia Anxiety Cervical radiculopathy Patient has DDD of cervical spine. She has had previous MRI a couple of years ago. She has headaches and numbness and tingling in both hands/fingers. Chronic neck pain Dysphagia Fatigue GERD (gastroesophageal reflux disease) Headache Hearing loss in right ear Hypertension screen Hypokalemia Joint pain Medication management Nausea Oral yeast infection Otitis media of both ears Pelvic pain Peroneal tendinitis, right leg RMSF ([place] spotted fever) Shortness of breath Upper respiratory tract infection Vertigo Vertigo Vitamin B12 deficiency anemia Vitamin D deficiency Surgical History S/P section X2 S/P tonsillectomy Social History Smoking and tobacco status: never smoked Alcohol intake: current Alcohol intake frequency: holidays/special occasions only History of recent travel: No Female Reproductive History Date of last menstrual period: 03/01/22 Data Anesthesia Cardiac Studies: No Data to Display
--- NOTE | 2022-06-14 08:17 | W.PM.OPSUD ---
Surgery/Procedure H&P Update DATE OF PROCEDURE: June 14, 2022 DATE H&P PERFORMED: 06/12/22 H&P UPDATE INFORMATION: I have reviewed H&P completed within last 30 days, I have examined patient prior to procedure and No changes to prior documentation PREOP DIAGNOSIS: Chronic diarrhea/abdominal pain PRIMARY INDICATION FOR PROCEDURE: The same PLANNED PROCEDURE: Operation Date: 06/14/22 09:00 Proposed Procedures p EGD and colonoscopy 70694,95121,K21.9,R13.10,R19.7(Not Applicable) - Philip Kowalski MD s Colonoscopy(Not Applicable) - Philip Kowalski MD
[2022-06-14 09:28] VITALS: BP 101/73; PULSE 74; RESP 18; TEMP 36.1; O2SAT 97
[2022-06-14 09:29] VITALS: BP 95/71; PULSE 75; RESP 18; O2SAT 97
--- NOTE | 2022-06-14 09:30 | ANE.PACU2 ---
Inpatient post-anesthesia follow up: Airway intact: Yes Vital signs: Temperature 97.0 F Pulse Rate 74 Respiratory Rate 18 Blood Pressure 101/73 Pulse Oximetry 97 Oxygen Delivery Me thod Room Air Oxygen Flow Rate Fraction of Inspir ed Oxygen Hydration adequate: Yes Nausea and vomiting: No Pain level: 1 Mental status: Baseline
[2022-06-14 09:39] VITALS: BP 105/73; PULSE 85; RESP 18; O2SAT 100
--- NOTE | 2022-06-14 09:48 | PC.NURSE ---
929 sternal rubbing to wake patient, upon waking patient gagging, used suction to suction oral airway, patient states I'm going to be sick . 32 Upon ready to give zofran when asked if she still felt sick, patient denied nausea.
[2022-06-14] MEDS: ondansetron 2 mg/ML SDV 2 mL 4 MG IVP (09:54)
--- NOTE | 2022-06-14 09:58 | PC.NURSE ---
0950 patient c/o nausea, zofran 4mg ivp given. 1000 patient states she doesn't feel nauseated. states she feels uncomfortable in her throat area, states she hasn't taken her home medications today.
--- NOTE | 2022-06-14 10:09 | PC.NURSE ---
1005 patient states she feels much better, throat soreness better
== END 2022-06-14 10:28 | disposition home or self-care (01) ==
PROVIDERS: Anesthesiology; PCP Nurse Practitioner; Visit Provider Surgery
PROC: 0DJ08ZZ Inspection of Upper Intestinal Tract, Via Natural or Artificial Opening Endoscopic (ICD-10-PCS; CPT 43235; principal; 2022-06-14 09:00)
PROC: 0DJD8ZZ Inspection of Lower Intestinal Tract, Via Natural or Artificial Opening Endoscopic (ICD-10-PCS; CPT 45378; 2022-06-14 09:00)
DX: R19.7 Diarrhea, unspecified (principal); K21.9 Gastro-esophageal reflux disease without esophagitis; R13.10 Dysphagia, unspecified; K63.89 Other specified diseases of intestine; K44.9 Diaphragmatic hernia without obstruction or gangrene; K29.50 Unspecified chronic gastritis without bleeding; B96.81 Helicobacter pylori [H. pylori] as the cause of diseases classified elsewhere
CPT/HCPCS: 43239; 45378; 81025; 82274; 83630; 84703; 87493; 87506; 88305; 88342; J2405; J2704; J7030

== ENCOUNTER 2022-06-18 07:27 | Day surgery (SDC) | payer MEDICAID, SELFPAY ==
[2022-06-17 15:10] VITALS: BMI 25.9
[2022-06-18] VITALS (14 sets, daily range): BP systolic 108–146; BP diastolic 71–96; PULSE 78–95; RESP 12–23; TEMP 36.2–36.5; O2SAT 96–100
[2022-06-18] MEDS: sodium chloride 0.9% 1,000 ML 30 ML IV (07:55)
[2022-06-18] MEDS: heparin 5,000 unit/mL INJ 1 mL 2000 UNIT SUBCUT (07:55)
[2022-06-18] MEDS: acetaminophen 1,000 MG/100 ML PIGGYBACK 400 MG IV (07:56)
--- NOTE | 2022-06-18 08:19 | ANES.PREANE2 ---
Pre-Anesthetic Assessment Height/Weight: Height 1.57 m Weight 64.41 kg Temp Pulse Resp BP Pulse Ox O2 Del Method 97.7 F 80 18 122/96 97 06/18/22 07:42 06/18/22 07:42 06/18/22 07:42 06/18/22 07:42 06/18/22 07:42 06/18/22 07:43 Preop Diagnosis: Biliary dysfunction Operation Date: 06/18/22 09:05 Proposed Procedures p 20453 lap rosemary possible open R10.9(Not Applicable) - Philip Kowalski MD Familial anesthetic complications: None Was Beta Elian taken within 24 hours: N/A Was Clonidine taken within 24 hours: N/A Last intake: Intake Last Liquid Date 06/17/22 Last Liquid Time 22:00 Last Solid Date 06/17/22 Last Solid Time 18:00 Social No alcohol and No tobacco Exam alert, oriented x 3, clear to auscultation bilaterally and regular rate & rhythm Airway Mallampati: Class II Dentition: full CV/HEM Anemia GI Gastroesophageal Reflux Disease and Hiatal Hernia Metabolic troy b12 deficiency Anesthetic Plan ASA status: 2 Anesthesia: General Risk of > 500 ml blood loss (7ml/kg in children): No Medications/Allergies Home Medications Medication Instructions Recorded Confirmed Last Taken Type meclizine 25 mg tablet 25 mg PO TID PRN vertigo 14 days 05/08/21 06/18/22 06/13/22 Rx #30 tabs albuterol sulfate 90 mcg/actuation 1 inh inhalation QID PRN shortness 07/31/21 06/18/22 05/21/22 Rx aerosol inhaler (Ventolin HFA) of breath or wheezing #6.7 grams budesonide-formoterol HFA 160 2 inh inhalation BID 30 days #10.2 09/13/21 06/17/22 06/13/22 Rx mcg-4.5 mcg/actuation aerosol grams inhaler (Symbicort) hrbwrjkoxp-eldsfdimjuzgv-dptwydzz 1 cap PO Q6H PRN pain #30 caps 11/30/21 06/18/22 06/13/22 Rx 50 mg-300 mg-40 mg capsule (Fioricet) topiramate 50 mg tablet (Topamax) 50 mg PO DAILY 30 days #90 tabs 12/14/21 06/17/22 06/13/22 Rx diphenoxylate-atropine 2.5 1 tab PO BID PRN diarrhea #10 tabs 03/15/22 06/18/22 06/13/22 Rx mg-0.025 mg tablet (Lomotil) ondansetron HCl 4 mg tablet 4 mg PO Q6H PRN nausea and 04/29/22 06/18/22 06/13/22 Rx vomiting #30 tabs pantoprazole 40 mg tablet,delayed 40 mg PO DAILY 06/17/22 06/17/22 06/18/22 07:00 History release venlafaxine 150 mg 150 mg PO DAILY 06/17/22 06/18/22 06/17/22 History capsule,extended release 24 hr Allergies Allergy/AdvReac Type Severity Reaction Status Date / Time aspirin Allergy unknown Verified 06/18/22 07:36 azithromycin Allergy hives Verified 06/18/22 07:36 [From Zithromax Z-Chang] meperidine [From Demerol] Allergy Unknown Verified 06/18/22 07:36 Opioids - Morphine Analogues Allergy unknown Verified 06/18/22 07:36 Penicillins Allergy unknown Verified 06/18/22 07:36 Current Medications Generic Name Dose Route Start Last Admin Trade Name Freq PRN Reason Stop Dose Admin Sodium Chloride 1,000 mls @ 30 mls/hr 06/18/22 07:30 06/18/22 07:55 Sodium Chloride 0.9% IV 06/19/22 07:29 30 mls/hr .Q24H ERNESTO Administration PFSH Anesthesia Medical History Abnormal Pap smear of cervix Anemia Anxiety Cervical radiculopathy Patient has DDD of cervical spine. She has had previous MRI a couple of years ago. She has headaches and numbness and tingling in both hands/fingers. Chronic neck pain Dysphagia Fatigue GERD (gastroesophageal reflux disease) Headache Hearing loss in right ear Hypertension screen Hypokalemia Joint pain Medication management Nausea Oral yeast infection Otitis media of both ears Pelvic pain Peroneal tendinitis, right leg RMSF ([place] spotted fever) Shortness of breath Upper respiratory tract infection Vertigo Vertigo Vitamin B12 deficiency anemia Vitamin D deficiency Surgical History S/P section X2 S/P tonsillectomy Family History (Updated 06/17/22 @ 08:40 by Eliane Dugan LPN) Denies family history of Colon cancer Ovarian cancer Diabetes Heart disease Hypercholesteremia Breast cancer Hypertension Uterine cancer Thyroid disease Stroke Social History (Updated 06/17/22 @ 08:31 by Eliane Dugan LPN) History of recent travel: No Female Reproductive History Date of last menstrual period: 03/01/22 Data Anesthesia Cardiac Studies: No Data to Display
[2022-06-18 08:47] LABS: OR HCG Qualitative Urine Negative (Negative)
--- NOTE | 2022-06-18 08:56 | W.PM.OPSUD ---
Surgery/Procedure H&P Update DATE OF PROCEDURE: June 18, 2022 DATE H&P PERFORMED: 06/12/22 H&P UPDATE INFORMATION: I have reviewed H&P completed within last 30 days, I have examined patient prior to procedure and Changes to prior documentation as noted here (Gastritis per EGD and patient is on Protonix) PREOP DIAGNOSIS: Biliary dysfunction PRIMARY INDICATION FOR PROCEDURE: The same PLANNED PROCEDURE: Operation Date: 06/18/22 09:05 Proposed Procedures p [id number] lap rosemary possible open R10.9(Not Applicable) - Philip Kowalski MD
[2022-06-18] MEDS: ciprofloxacin 400 MG/200 ML PREMIX 200 MG IV (09:22)
[2022-06-18] MEDS: lidocaine 1% INJ 20 mL XX (10:10)
--- NOTE | 2022-06-18 10:20 | PM.OP ---
Operative Report Date of procedure: June 18, 2022 Pre-op diagnosis: Preop Diagnosis Biliary dysfunction Post-op diagnosis: Chronic cholecystitis Procedure done: Laparoscopic cholecystectomy Implants: Surgicel gallbladder fossa Specimens removed/disposition: Gallbladder and contents Surgeon: Philip Kowalski MD Anesthesia: General Estimated blood loss (mL): 20 IV fluids (mL): 500 Procedure: Patient was identified in the holding area and taken back to the operative suite, placed in supine position intubated by anesthesia . Time-out was done verifying the patient's name/date of /planned procedure and destination after the procedure, all were in agreement. SCDs confirmed to be functioning, preoperative antibiotics administered per protocol, and beta sophie protocol was confirmed. Patient was appropriately secured to the table, footboard was applied to the OR table, before prep and drape anesthesia was asked to tilt the table back and forth to make sure that the patient is appropriately secured and she was. Prep and drape of the abdomen was done under the usual sterile technique, followed by that infraumbilical skin incision,skin incision was done by a 15 blade knife, and stay sutures were applied to the fascia and Benitez trocar technique was used to enter the abdominal without injuring any abdominal viscera, started by low flow gas insufflation followed by a high flow, started with a 10 mm laparoscope and under direct vision there was no evidence of any injuries, the scope then switched to a 30? ,10 millimeter scope and under direct visualization 5 millimeter trocar was inserted in the epigastric region followed by two 5 mm trocars were inserted in the right upper quadrant that was done after injection of local lidocaine 2% at all incision sites. Gallbladder showed chronic cholecystitis, noticed omental adhesions Patient was then positioned in the head up and tilted to the left. Ratcheted forceps were introduced into the lateral most 5mm port and was applied unto the fundus of the gallbladder cephalad and using Bullet forceps the infundibulum of the gallbladder was retracted laterally. Using [place] forceps then L-hook cautery to dissect the peritoneum overlying the Calot's triangle and take omental adhesions which was then opened medially and laterally until the cystic duct and the cystic artery were skeletonized. Dissection was carried along the body of the gallbladder and after ensuring critical view of safety was identfied. Cystic duct and cystic artery where seen connected to the gallbladder. Clips were applied on the cystic duct towards the common bile duct 1 towards the gallbladder then divided is in sharp scissors, 2 clips were then applied onto the cystic artery and 1 towards the gallbladder and divided by sharp scissors. Dissection was then carried along of the gallbladder from the gallbladder fossa using cautery as well as sharp dissection with heat energy. The gallbladder then was dissected out from the gallbladder fossa totally , cholecystectomy was then achieved and was placed in an Endo Catch bag and then retrieved from the Benitez trocar site under direct visualization using a 5 mm 30? scope through the epigastric trocar, specimen was then passed to the circulating nurse to go for permanent pathology,irrigation and hemostasis was done to the gallbladder fossa after hemostasis was secured, final survey laparoscopy was done that showed no injuries. Suction irrigation was obtained. The infraumbilical fascial defect was then closed using interrupted number one PDS sutures using a fascial closure device ;Emery Choudhury under direct visualization following that Gas was allowed to deflate,Trocars were then taken out under direct vision there was no evidence of bleeding. Specimen was passed to the circulating nurse for permanent pathology. No drains were placed and the infraumbilical incision as well as all trocar sites were closed by 3/0 Vicryl followed by 4-0 Monocryl to approximate the skin edges of the incisions,dressing was applied in the form of surical glue and the patient patient got extubated and was taken to recovery area in a stable condition. Count of sponges,needles and instruments were completed at the end of the procedure I was present for the whole entire procedure.
[2022-06-18] MEDS: ondansetron 2 mg/ML SDV 2 mL 4 MG IVP (10:56)
--- NOTE | 2022-06-18 11:00 | PC.NURSE ---
Nausea. \no emesis. \medicated
[2022-06-18] MEDS: fentaNYL 50 mcg/mL INJ 2mL IVP (11:12)
--- NOTE | 2022-06-18 11:18 | PC.NURSE ---
medicated for pain. partial relief
[2022-06-18] MEDS: HYDROcodone-acetaminophen 5-325 mg Tablet 1 TAB PO (11:56)
--- NOTE | 2022-06-18 13:27 | ANE.PACU2 ---
Inpatient post-anesthesia follow up: Airway intact: Yes Vital signs: Temperature 97.7 F Pulse Rate 93 Respiratory Rate 18 Blood Pressure 133/81 Pulse Oximetry 96 Oxygen Delivery Me thod Room Air Oxygen Flow Rate 8 Fraction of Inspir ed Oxygen Hydration adequate: Yes Nausea and vomiting: No Pain level: 1 Mental status: Baseline
== END 2022-06-18 12:42 | disposition home or self-care (01) ==
PROVIDERS: PCP Nurse Practitioner; Visit Provider Surgery
PROC: 0FT44ZZ Resection of Gallbladder, Percutaneous Endoscopic Approach (ICD-10-PCS; CPT 47562; principal; 2022-06-18 08:55)
DX: K81.1 Chronic cholecystitis (principal); K21.9 Gastro-esophageal reflux disease without esophagitis
CPT/HCPCS: 47562; 81025; 84703; 88304; J0131; J0744; J1100; J1644; J2405; J2704; J3010; J3490; J7030

== ENCOUNTER 2022-07-31 11:20 | Observation (INO) | payer MEDICAID, SELFPAY ==
[2022-07-31] VITALS (41 sets, daily range): BP systolic 101–149; BP diastolic 63–87; PULSE 67–128; RESP 16–20; TEMP 36.6–36.8; O2SAT 95–100
--- NOTE | 2022-07-31 11:57 | W.ED.ABDPA2 ---
HPI - Abdominal Pain General: Chief Complaint: Abdominal Pain Stated Complaint: N/V Black vomit, Abd pain Time Seen by Provider: 07/31/22 11:57 History of Present Illness: Ms. Roberson is a 42-year-old lady with history of GERD, gastritis, cholecystectomy on 06/18/22 presenting to the emergency department for abdominal pain, nausea vomiting and diarrhea. She reports onset of symptoms last night with multiple episodes of black-colored emesis associated with watery diarrhea and generalized abdominal cramping. She also was concerned regarding possible bruising around the bellybutton. Denies history of known GI bleed or liver disease. Intensity symptoms is moderate to severe. Course has persisted. No other specific changes in health, exacerbating, or alleviating factors identified. Onset (ago): hour(s) Pain Consistency: constant Location: Diffuse Severity: moderate Quality: cramping and aching Radiation: none Migration to: no migration Exacerbating factors: vomiting Relieving factors: nothing Context: recent surgery/procedure Associated Symptoms: Reports diarrhea, nausea and vomiting Related Data: Date of Last Menstrual Period: 03/01/22 Review of Systems General: Reports: 10 or more systems reviewed and unremarkable except in HPI and below GI: Reports: nausea, vomiting and diarrhea PFSH ED PFSH: Medical History Abnormal Pap smear of cervix Anemia Anxiety Cervical radiculopathy Patient has DDD of cervical spine. She has had previous MRI a couple of years ago. She has headaches and numbness and tingling in both hands/fingers. Chronic neck pain Dysphagia Fatigue GERD (gastroesophageal reflux disease) Headache Hearing loss in right ear Hypertension screen Hypokalemia Joint pain Medication management Nausea Oral yeast infection Otitis media of both ears Pelvic pain Peroneal tendinitis, right leg RMSF ([place] spotted fever) Shortness of breath Upper respiratory tract infection Vertigo Vertigo Vitamin B12 deficiency anemia Vitamin D deficiency Surgical History S/P section X2 S/P tonsillectomy Family History Denies family history of Colon cancer Ovarian cancer Diabetes Heart disease Hypercholesteremia Breast cancer Hypertension Uterine cancer Thyroid disease Stroke Social History History of recent travel: No Female Reproductive History: Date of last menstrual period: 03/01/22 Physical Exam Const: COMMON NORMALS: alert GENERAL APPEARANCE: cooperative and well developed HENMT: COMMON NORMALS: normocephalic and atraumatic HEAD & SCALP: normocephalic and atraumatic THROAT: posterior oropharynx normal Eye: COMMON NORMALS: conjunctivae normal CONJUNCTIVA: Yes conjunctivae normal SCLERA: sclerae normal Neck/C-Spine: COMMON NORMALS: supple GENERAL: Yes trachea midline Resp: COMMON NORMALS: clear to auscultation bilaterally EFFORT & INSPECTION: Yes able to speak in complete sentences AUSCULTATION: clear to auscultation bilaterally Cardio: COMMON NORMALS: regular rhythm RATE: tachycardic RHYTHM: regular rhythm GI: COMMON NORMALS: Soft to palpation PALPATION: Yes Soft to palpation, Yes Tenderness to palpation present (GI), No Guarding due to palpation present (GI) and No Rigid due to palpation Extremity: GENERAL: Yes normal exam except as noted and No edema Neuro: COMMON NORMALS: moves all extremities SENSORIUM/ORIENTATION: Yes alert and No Orientation impaired Psych: COMMON NORMALS: mental status grossly normal and Normal thought process present THOUGHT PROCESS: Normal thought process present Course Vital Signs: Vital signs: Vital Signs Temperature 98.1 F 08/01/22 13:45 Pulse Rate 95 08/01/22 13:45 Respiratory Rate 18 08/01/22 13:45 Blood Pressure 107/72 08/01/22 13:45 Pulse Oximetry 98 08/01/22 13:45 Oxygen Delivery Me thod 08/01/22 12:00 MDM - Abdominal Pain Medical Decision Making 42-year-old lady presenting with abdominal pain in the context of recent surgical procedure. Exam as above with abdominal tenderness with no evidence of acute surgical abdomen. Patient is tachycardic and mildly ill-appearing. Labs notable for leukocytosis, normal hemoglobin and platelet count. Metabolic panel with some evidence of dehydration and metabolic stress. Transaminitis is present of uncertain etiology. No evidence of urinary tract infection. Chest x-ray with no lobar consolidation or pneumothorax. CTA of the abdomen pelvis without acute pathology identified. Incidental findings discussed. Verified with radiology that the cyst is ruptured gallbladder fossa does not appear to be abscess. Despite ED treatment with IV fluids, antiemetic, repeat bolus, Protonix patient continues to be somewhat ill-appearing and tachycardic. Unsure of exact etiology however given patient description symptoms and clinical appearance patient requires observation for culture surveillance and further evaluation. She has SIRS and reported black emesis as well as new transaminitis. The results of ED evaluation were discussed with the patient including plan for admission due to requirement for level of care not available if discharged to prevent significant worsening/deterioration. Patient agreeable with plan. Discussed with hospitalist service who was agreeable to admit patient. Medical Records I reviewed the patient's medical records. Lab Data I reviewed the patient's lab results. 08/01/22 09:46 08/01/22 04:30 Labs/Radiology: Radiology Impressions Chest X-Ray 07/31/22 12:18 IMPRESSION: Unremarkable chest radiograph. Abdomen/Pelvis CTA 07/31/22 12:24 IMPRESSION: 1. The abdominal aorta and all major branches in the abdomen and pelvis are widely patent. No aneurysm or dissection noted. 2. No mass, lymphadenopathy or acute finding in the abdomen or pelvis. 3. Enlarged uterus probably containing small fibroids. Fluid in the endometrial cavity. 1.78 cm cyst in the right ovary. 4. Small cystic structure is seen in the region of the gallbladder fossa that may represent a dilated cystic duct remanent or hepatic cyst.. This measures about 2.2 cm at greatest diameter. Laboratory Results WBC 13.8 10^3/uL (4.0-10.0) H 07/31/22 12:14 RBC 4.81 10^6/uL (4.1-5.3) 07/31/22 12:14 Hgb 13.7 g/dL (11.5-15.3) 07/31/22 12:14 Hct 42.4 % (37.0-47.0) 07/31/22 12:14 MCV 88.1 fl (81-99) 07/31/22 12:14 MCH 28.5 pg (28.0-34.0) 07/31/22 12:14 MCHC 32.3 g/dL (30.0-36.0) 07/31/22 12:14 RDW 13.2 % (12.1-15.1) 07/31/22 12:14 Plt Count 317 10^3/cmm (130-400) 07/31/22 12:14 MPV 9.9 fL (7.4-10.4) 07/31/22 12:14 Neut % (Auto) 93.5 % 07/31/22 12:14 Lymph % (Auto) 2.7 % 07/31/22 12:14 Iron % (Auto) 3.3 % 07/31/22 12:14 Eos % (Auto) 0.0 % 07/31/22 12:14 Baso % (Auto) 0.1 % 07/31/22 12:14 Neut # (Auto) 12.93 10^3/uL (1.8-7.7) H 07/31/22 12:14 Lymph # (Auto) 0.4 10^3/uL (0.8-4.8) L 07/31/22 12:14 Iron # (Auto) 0.5 10^3/uL (0.2-0.9) 07/31/22 12:14 Eos # (Auto) 0.0 10^3/uL (0.0-0.8) 07/31/22 12:14 Baso # (Auto) 0.0 10^3/uL (0.0-0.1) 07/31/22 12:14 Nucleated RBC % (auto) 0 % 07/31/22 12:14 Nucleated RBCs # 0.0 /100WBC 07/31/22 12:14 PT 12.60 SECONDS (12.1-14.9) 07/31/22 12:14 INR 0.92 (0.8-1.2) 07/31/22 12:14 APTT 24.0 SECONDS (23.9-36.7) 07/31/22 12:14 Sodium 132 mmol/L (136-145) L 07/31/22 12:14 Potassium 3.6 mmol/L (3.5-5.1) 07/31/22 12:14 Chloride 97 mmol/L (98-107) L 07/31/22 12:14 Carbon Dioxide 20 mmol/L (22-29) L 07/31/22 12:14 Anion Gap 18.6 (5-19) 07/31/22 12:14 BUN 17 mg/dL (6-20) 07/31/22 12:14 Creatinine 0.6 mg/dL (0.5-0.9) 07/31/22 12:14 GFR Calculation 109.6 mL/min (90-130) 07/31/22 12:14 Glucose 124 mg/dL (65-115) H 07/31/22 12:14 Estimat Average Glucose 131 07/31/22 12:14 Hemoglobin A1c 6.2 % (4.0-6.0) H 07/31/22 12:14 Calculated Osmolality 277 mOsm/kg (285-295) L 07/31/22 12:14 Calcium 8.6 mg/dL (8.5-10.5) 07/31/22 12:14 Total Bilirubin 0.4 mg/dL (0.15-1.2) 07/31/22 12:14 AST 318 U/L (0-32) H 07/31/22 12:14 ALT 167 U/L (0-33) H 07/31/22 12:14 Alkaline Phosphatase 158 U/L (35-105) H 07/31/22 12:14 Total Protein 7.4 g/dL (6.6-8.7) 07/31/22 12:14 Albumin 4.4 g/dL (3.5-5.2) 07/31/22 12:14 Globulin 3.0 g/dL (1.3-4.6) 07/31/22 12:14 Lipase 16 U/L (13-60) 07/31/22 12:14 HCG, Qual Negative (Negative) 07/31/22 12:34 Urine Color Yellow (Yellow) 07/31/22 13:49 Urine Appearance Clear (CLEAR) 07/31/22 13:49 Urine pH 5 (5-7) 07/31/22 13:49 Ur Specific [place] 1.025 (1.005-1.030) 07/31/22 13:49 Urine Protein Neg (Negative) 07/31/22 13:49 Urine Glucose (UA) Norm (Normal) 07/31/22 13:49 Urine Ketones 1+ (Negative) H 07/31/22 13:49 Urine Blood Neg (Negative) 07/31/22 13:49 Urine Nitrate Negative (Negative) 07/31/22 13:49 Urine Bilirubin Neg (Negative) 07/31/22 13:49 Urine Urobilinogen Neg mg/dL (Negative) 07/31/22 13:49 Ur Leukocyte Esterase Negative (Negative) 07/31/22 13:49 Gastric Occult Blood Negative (Negative) 07/31/22 12:34 Acetaminophen < 5.0 ug/mL (10-30) L 07/31/22 12:14 Ethyl Alcohol < 10 mg/dL (0-10) 07/31/22 17:17 ZULMA Screen Negative (NEGATIVE) 07/31/22 17:17 Coronavirus 229E (PCR) Not detected (NOT DETECT) 07/31/22 15:34 H. pylori IgG Antibody Negative (Negative) 07/31/22 15:23 Hepatitis A IgM Ab Non-reactive (Nonreactive) 07/31/22 12:14 Hep Bs Antigen Non-reactive (Nonreactive) 07/31/22 12:14 Hep B Core IgM Ab Non-reactive (Nonreactive) 07/31/22 12:14 Hepatitis C Antibody Non-reactive (Nonreactive) 07/31/22 12:14 SARS-CoV-2 (PCR) Not detected (NOT DETECT) 07/31/22 15:34 Mitochondrial DNA Scrn Negative (NEGATIVE) 07/31/22 17:17 Blood Type O Positive 07/31/22 12:14 Rho(D) Type Positive 07/31/22 12:14 Antibody Screen Negative 07/31/22 12:14 Discharge Plan Discharge Patient Disposition: Placed in Observation Admit Provider: Jef Chase Clinical Impression: Nausea vomiting and diarrhea, SIRS (systemic inflammatory response syndrome), Transaminitis Coding Level of Care Code ED Dental Office Assistant for Chg Fwd Exam Comprehensive
--- NOTE | 2022-07-31 12:18 | XR_ITS ---
WS: [id number] Exam: XR chest 1V portable [id number] Date/Time of Exam: 07/31/2022 12:18 PM Reason For Exam: epigastric/chest pain Comparison 08/21/2021. Findings: The lungs are clear and fully expanded. Costophrenic angles are sharp. No infiltrates. Bronchovascula r relief appears normal. Cardiac silhouette is unremarkable. Bony elements are intact. XR/XR chest 1V portable [id number] IMPRESSION: Unremarkable chest radiograph.
[2022-07-31 12:21] LABS: Basophils % 0.1 %; Hematocrit 42.4 % (37.0-47.0); Hemoglobin 13.7 g/dL (11.5-15.3); Lymphocytes # 0.4 10^3/uL (0.8-4.8); Lymphocytes % 2.7 %; Mean Corpuscular HGB Conc 32.3 g/dL (30.0-36.0); Mean Corpuscular Hemoglobin 28.5 pg (28.0-34.0); Mean Corpuscular Volume 88.1 fl (81-99); Mean Platelet Volume 9.9 fL (7.4-10.4); Monocytes # 0.5 10^3/uL (0.2-0.9); Monocytes % 3.3 %; Neutrophils # 12.93 10^3/uL (1.8-7.7); Neutrophils % 93.5 %; Nucleated Red Blood Cells % 0 %; Platelet Count 317 10^3/cmm (130-400); Red Blood Count 4.81 10^6/uL (4.1-5.3); Red Cell Distribution Width 13.2 % (12.1-15.1); White Blood Count 13.8 10^3/uL (4.0-10.0)
--- NOTE | 2022-07-31 12:24 | CT_ITS ---
WS: [id number] Exam: CT angio abdomen pelvis [id number] Date/Time of Exam: 07/31/2022 1:03 PM Reason For Exam: possible gi bleed, black vomit, gen abd pain DLP: 542.[address] scans at [facility] use at least one of these dose optimization techniques: automated e xposure control; mA and/or kV adjustment per patient size (includes targeted exams where dose is matc hed to clinical indication); or iterative reconstruction. CT angiogram of the abdomen and pelvis with contrast. Lower lung zones are clear. Hepatic steatosis. The spleen, stomach and pancreas are unremarkable. The gallbladder is surgically absent. Cystic structure noted in the gallbladder fossa that may represent a dilated cystic duct remanent. This measures about 2.2 cm at greatest diameter. Unremarkable adrena l glands and kidneys. The abdominal aorta is normal in caliber. The IVC is patent. The celiac, SMA an d MARKEL are patent. The bilateral renal arteries are patent. Opaque density in the stomach that may rep resent ingested medication. The iliac bifurcation is unremarkable. The common, internal and external iliac arteries are patent. The common femoral and visualized superficial femoral arteries are patent. No large or small bowel abnormality is demonstrated. No free air. No lymphadenopathy in the abdomen or pelvis. No sign of acute appendix. Prominent uterus with probable fibroids. Fluid in the endometri al cavity. The urinary bladder is almost completely collapsed but no obvious abnormality. 1.78 cm cys t in the right ovary. Unremarkable left ovary. Bony structures are intact. No abdominal wall defect. CT/CT angio abdomen pelvis [id number] IMPRESSION: 1. The abdominal aorta and all major branches in the abdomen and pelvis are wid gama patent. No aneurysm or dissection noted. 2. No mass, lymphadenopathy or acute finding in the abdomen or pelvis. 3. Enlarged uterus probably containing small fibroids. Fluid in the endometrial cavity. 1.78 cm cyst in the right ovary. 4. Small cystic structure is seen in the region of the gallbladder fossa that m ay represent a dilated cystic duct remanent or hepatic cyst.. This measures abo ut 2.2 cm at greatest diameter.
[2022-07-31] MEDS: ondansetron 2 mg/ML SDV 2 mL 4 MG IVP ×2 (12:28→15:10)
[2022-07-31] MEDS: pantoprazole 40 mg SDV 80 MG IVP (12:29)
[2022-07-31] MEDS: sodium chloride 0.9% 1,000 ML 999 ML IV ×2 (12:29→15:29)
[2022-07-31 12:33] LABS: INR 0.92 (0.8-1.2)
[2022-07-31 12:39] LABS: Alanine Aminotransferase 167 U/L (0-33); Albumin Level 4.4 g/dL (3.5-5.2); Alkaline Phosphatase 158 U/L (35-105); Anion Gap 18.6 (5-19); Aspartate Amino Transferase 318 U/L (0-32); Blood Urea Nitrogen 17 mg/dL (6-20); Calcium 8.6 mg/dL (8.5-10.5); Carbon Dioxide 20 mmol/L (22-29); Chloride 97 mmol/L (98-107); Creatinine Clr Calc Pharmacy 108.6918; Glomerular Filtration Rate 109.6 mL/min (90-130); Glucose 124 mg/dL (65-115); Osmolality Calculated 277 mOsm/kg (285-295); Potassium 3.6 mmol/L (3.5-5.1); Sodium 132 mmol/L (136-145); Total Bilirubin 0.4 mg/dL (0.15-1.2); Total Protein 7.4 g/dL (6.6-8.7)
[2022-07-31] MEDS: fentaNYL 50 mcg/mL INJ 2mL IVP (12:43)
[2022-07-31 12:50] LABS: Gastricult Occult Blood Negative (Negative)
[2022-07-31 13:26] LABS: Acetaminophen < 5.0 ug/mL (10-30)
[2022-07-31 13:38] LABS: Hepatitis A Antibody IgM Non-Reactive (Nonreactive); Hepatitis B Core IgM Non-Reactive (Nonreactive); Hepatitis B Surface Antigen Non-Reactive (Nonreactive); Hepatitis C Virus Antibody Non-Reactive (Nonreactive)
[2022-07-31 13:54] LABS: Add Urine Microscopic? NO; Charge for UA Resulting for Rev
[2022-07-31 13:59] LABS: Bilirubin Urine Neg (Negative); Blood Urine Neg (Negative); Glucose Urine UA Norm (Normal); Ketones Urine 1+ (Negative); Leukocyte Esterase Urine Negative (Negative); Nitrate Urine Negative (Negative); Protein Urine Neg (Negative); Specific Gravity, Urine 1.025 (1.005-1.030); Urine Appearance Clear (CLEAR); Urine Color Yellow (Yellow); Urobilinogen Urine Neg (Negative); pH Urine 5 (5-7)
[2022-07-31 14:02] LABS: HCG Qualitative Urine. Negative (Negative)
[2022-07-31] MEDS: iohexol 350 mg/mL 500 mL Btl (per mL) IV (14:20)
[2022-07-31 15:46] LABS: Lipase 16 U/L (13-60)
[2022-07-31 15:59] LABS: H. Pylori IgG Antibody Negative (Negative)
--- NOTE | 2022-07-31 16:44 | PM.HP ---
Providers/Chief Complaint Primary Care Provider: Mallory Waller APN Chief Complaint: N/V Black vomit, Abd pain History of Present Illness Monserrat Roberson is a 42 year old female presented to the hospital with recurrent nausea, vomiting and diarrhea. Her symptoms started last night 10 PM, she carries history of [place] spotted fever which was roughly 4 years ago, no recent fever but she is endorsing headache, itching, abdominal cramps. She has not use any antibiotics. No history of hepatitis. Does not drink alcohol daily basis. No active chest pain, shortness of breath. Around [place] she had gallbladder surgery. In the ER she has been diagnosed with abnormal transaminases, I have requested H. pylori fecal antigen, hepatitis panel is negative, ZULMA, antinuclear antibodies. No one else is sick at home, she uses city water and bottled water And total more than 10 episodes of vomiting, she stating that her first vomited content was dark which scared her, FOBT negative in the ER, hemoglobin stable, she is sinus tachycardic heart rate 116 range Abdomen pelvis unremarkable, more than 7 episodes of diarrhea so far Review of Systems Const: Reports: chills and body aches Eyes: Denies: change in vision ENMT: Denies: throat pain Card: Denies: chest pain Resp: Denies: dyspnea GI: Reports: abdominal pain, nausea, vomiting and diarrhea : Denies: flank pain Musc: Denies: neck pain Skin/Breast: Denies: rash Neuro: Denies: headache(s) Psych: Reports: anxiety Endo: Denies: polyuria Abram/Lymph: Denies: easy bruising All/Imm: Denies: urticaria Medications/Allergies Home Medications Medication Instructions Recorded Confirmed Last Taken Type topiramate 50 mg tablet (Topamax) 50 mg PO DAILY 30 days #90 tabs 12/14/21 07/31/22 07/30/22 Rx venlafaxine 150 mg 150 mg PO DAILY 06/17/22 07/31/22 07/30/22 History capsule,extended release 24 hr pantoprazole 40 mg tablet,delayed 40 mg PO DAILY 30 days #30 tabs 06/18/22 07/31/22 07/31/22 Rx release (Protonix) epinephrine 0.3 mg/0.3 mL 0.3 mg IM Q4H PRN Allergy Symptoms 07/31/22 07/31/22 Unknown History injection, auto-injector (EpiPen) meloxicam 15 mg tablet 15 mg PO DAILY 07/31/22 07/31/22 07/30/22 History Allergies Allergy/AdvReac Type Severity Reaction Status Date / Time aspirin Allergy unknown Verified 06/28/22 06:32 azithromycin Allergy hives Verified 06/28/22 06:32 [From Zithromax Z-Chang] meperidine [From Demerol] Allergy Unknown Verified 06/28/22 06:32 Opioids - Morphine Analogues Allergy unknown Verified 06/28/22 06:32 Penicillins Allergy unknown Verified 06/28/22 06:32 PFSH Acute PFSH: Medical History Abnormal Pap smear of cervix Anemia Anxiety Cervical radiculopathy Patient has DDD of cervical spine. She has had previous MRI a couple of years ago. She has headaches and numbness and tingling in both hands/fingers. Chronic neck pain Dysphagia Fatigue GERD (gastroesophageal reflux disease) Headache Hearing loss in right ear Hypertension screen Hypokalemia Joint pain Medication management Nausea Oral yeast infection Otitis media of both ears Pelvic pain Peroneal tendinitis, right leg RMSF ([place] spotted fever) Shortness of breath Upper respiratory tract infection Vertigo Vertigo Vitamin B12 deficiency anemia Vitamin D deficiency Surgical History S/P section X2 S/P tonsillectomy Family History Denies family history of Colon cancer Ovarian cancer Diabetes Heart disease Hypercholesteremia Breast cancer Hypertension Uterine cancer Thyroid disease Stroke Social History History of recent travel: No Female Reproductive History: Date of last menstrual period: 03/01/22 Vitals/I&O/Wt Last Vital Signs Temp 98.1 F 07/31/22 11:24 Pulse 116 H 07/31/22 15:10 Resp 20 H 07/31/22 15:10 BP 119/81 07/31/22 15:10 Pulse Ox 100 07/31/22 15:10 O2 Del Method 07/31/22 15:10 07/31/22 07/31/22 07/31/22 06:59 14:59 22:59 Intake Total 1000 / 1000 Balance 1000 / 1000 Weight last 48 hrs Weight 65.771 kg Physical Exam Narrative: Patient is awake and alert Sinus tachycardia Signs of dehydration Abdomen soft No sign of skin rash Awake and alert Doing well on room air Hemodynamically stable Significant other at the bedside No acute distress Appears anxious No signs of icterus S1, S2 sinus tachycardia Nonfocal neuro exam No audible stridor or wheezing Data 07/31/22 12:14 07/31/22 12:14 A&P Assessment and plan (1) Nausea vomiting and diarrhea: (2) Transaminitis: (3) Melanosis coli: (4) Gastritis: (5) Chronic diarrhea: (6) Nausea and vomiting: (7) Vertigo: Plan Viral gastroenteritis Start doxycycline and IV fluids History of [place] spotted fever No skin rash No fever Complaining of abdominal cramps, headache Signs of dehydration present, continue IV fluid hydration Full code We will keep her on GI soft diet In case of persistent nausea vomiting she might need EGD Requested AMA, ZULMA Hepatitis panel negative DVT prophylaxis on board Attestations Medical Necessity Statement*: Anticipating discharge within 48 hours Time Spent in Patient Care: 30 Coding Level of Care Code Acute Code for Chg Fwd Diagnoses Nausea vomiting and diarrhea R11.2; R19.7 Transaminitis R74.01 Melanosis coli K63.89 Gastritis K29.70 Chronic diarrhea K52.9 Nausea and vomiting R11.2 Vertigo R42
[2022-07-31 17:25] LABS: Adenovirus Not Detected (NOT DETECT); Chlamydia Pneumoniae Not Detected (NOT DETECT); Coronavirus 229E,HKU1,NL63,OC4 Not Detected (NOT DETECT); Human Metapneumovirus Not Detected (NOT DETECT); Human Rhinovirus/Enterovirus Not Detected (NOT DETECT); Influenza A Not Detected (NOT DETECT); Influenza A H1 Not Detected (NOT DETECT); Influenza A H1-2009 Not Detected (NOT DETECT); Influenza A H3 Not Detected (NOT DETECT); Influenza B Not Detected (NOT DETECT); Mycoplasma Pneumoniae Not Detected (NOT DETECT); Parainfluenza Virus Type 1 Not Detected (NOT DETECT); Parainfluenza Virus Type 2 Not Detected (NOT DETECT); Parainfluenza Virus Type 3 Not Detected (NOT DETECT); Parainfluenza Virus Type 4 Not Detected (NOT DETECT); Respiratory Syncytial Virus A Not Detected (NOT DETECT); Respiratory Syncytial Virus B Not Detected (NOT DETECT); SARS-COV-2 Not Detected (NOT DETECT)
[2022-07-31 17:43] LABS: Alcohol Level < 10 mg/dL (0-10)
[2022-07-31] MEDS: sodium chloride 0.9% 1,000 ML 75 ML IV (18:42)
[2022-07-31] MEDS: doxycycline 100 mg Tablet PO (19:52)
[2022-07-31] MEDS: enoxaparin 40 mg/0.4 mL Syringe SUBCUT (19:52)
[2022-07-31] MEDS: pantoprazole 40 mg SDV IVP (19:57)
[2022-07-31 20:27] LABS: Estmated Average Glucose 131; Hemoglobin A1C 6.2 % (4.0-6.0)
[2022-08-01 04:01] VITALS: BP 104/68; PULSE 98; RESP 20; TEMP 36.7; O2SAT 97
[2022-08-01 05:02] LABS: Basophils % 0.2 %; Eosinophils # 0.1 10^3/uL (0.0-0.8); Eosinophils % 1.4 %; Hematocrit 32.6 % (37.0-47.0); Hemoglobin 10.5 g/dL (11.5-15.3); Lymphocytes # 1.3 10^3/uL (0.8-4.8); Lymphocytes % 28.8 %; Mean Corpuscular HGB Conc 32.2 g/dL (30.0-36.0); Mean Corpuscular Volume 90.1 fl (81-99); Mean Platelet Volume 10.1 fL (7.4-10.4); Monocytes # 0.4 10^3/uL (0.2-0.9); Monocytes % 8.3 %; Neutrophils # 2.65 10^3/uL (1.8-7.7); Neutrophils % 61.1 %; Nucleated Red Blood Cells % 0 %; Platelet Count 240 10^3/cmm (130-400); Red Blood Count 3.62 10^6/uL (4.1-5.3); Red Cell Distribution Width 13.5 % (12.1-15.1); White Blood Count 4.3 10^3/uL (4.0-10.0)
[2022-08-01 05:32] LABS: Alanine Aminotransferase 105 U/L (0-33); Albumin Level 3.3 g/dL (3.5-5.2); Alkaline Phosphatase 121 U/L (35-105); Anion Gap 13.1 (5-19); Aspartate Amino Transferase 107 U/L (0-32); Blood Urea Nitrogen 7 mg/dL (6-20); Calcium 7.3 mg/dL (8.5-10.5); Carbon Dioxide 21 mmol/L (22-29); Chloride 107 mmol/L (98-107); Creatinine Clr Calc Pharmacy 108.6918; Globulin 2.1 g/dL (1.3-4.6); Glomerular Filtration Rate 109.6 mL/min (90-130); Glucose 121 mg/dL (65-115); Magnesium 1.7 mg/dL (1.7-2.3); Osmolality Calculated 285 mOsm/kg (285-295); Potassium 3.1 mmol/L (3.5-5.1); Sodium 138 mmol/L (136-145); Total Bilirubin 0.2 mg/dL (0.15-1.2); Total Protein 5.4 g/dL (6.6-8.7)
[2022-08-01] MEDS: sodium chloride 0.9% 1,000 ML 75 ML IV (06:18)
[2022-08-01 08:00] VITALS: BP 107/72; PULSE 96; RESP 16; TEMP 36.4; O2SAT 100
[2022-08-01 08:15] VITALS: PULSE 98; RESP 16; O2SAT 98
[2022-08-01] MEDS: pantoprazole 40 mg SDV IVP (08:53)
[2022-08-01] MEDS: doxycycline 100 mg Tablet PO (08:53)
--- NOTE | 2022-08-01 09:17 | PC.NURSE ---
Dr. Chase ordered 15 mg of [address]ad[address]. Notified Dr. Chase patient allergic to aspirin so changed order to 650 mg Tylenol one time.
--- NOTE | 2022-08-01 09:29 | P.DS_ITS ---
Discharge Providers Date of Admission: 07/31/22 17:59 Date of Discharge: August 01, 2022 Attending Provider at Admission: Jef Chase MD Attending Provider at Discharge: Jef Chase MD Primary Care Provider: Mallory Waller APN Diagnoses at Discharge Discharge Diagnosis (1) Nausea vomiting and diarrhea: Status: Acute (2) Transaminitis: Status: Acute (3) Melanosis coli: Status: Acute (4) Gastritis: Status: Acute (5) Chronic diarrhea: Status: Chronic (6) Nausea and vomiting: Status: Acute (7) Vertigo: Status: Acute Reason for Visit Reason for Visit: N/V Black vomit, Abd pain Hospital Course Hospital Course 42-year female who was admitted for management evaluation of recurrent nausea and vomiting, she has been afebrile, complaining of headache, abnormal transaminases which are trending down, she was put on doxycycline because she has history of [place] spotted fever, she is still endorsing fatigue and lethargy however no recurrence of nausea and vomiting or diarrhea during hospitalization. COVID-negative, stool culture positive lactoferrin, FOBT positive, patient will need outpatient colonoscopy. Non-smoker does not drink alcohol daily basis. Secondary to abnormal transaminases I requested ZULMA, antimitochondrial antibodies, H. pylori stool antigen, Physical Exam Narrative: Awake and alert Young female Looks hydrated as compared to yesterday Abdomen soft No audible stridor or wheezing Doing well on room air S1, S2 Discharge Data Studies Completed and Pending Completed Studies During Hospitalization Category Date Time Status CTA abdomen pelvis [CT angio abdomen pelvis [id number]] Stat Cat Scan 07/31/22 12:24 Completed XR chest 1V portable [id number] Stat Exams 07/31/22 12:18 Completed Pending at discharge Category Date Time Status AMA [Mitochondrial AB Screen] Routine Lab 07/31/22 17:17 Received ZULMA Screen w/ Reflex Routine Lab 07/31/22 17:17 Received Helicobacter Pylori AG Stool Routine Lab 07/31/22 18:16 Uncollected Hemoglobin and Hematocrit Stat Lab 08/01/22 09:29 Ordered Radiology Impressions Chest X-Ray 07/31/22 12:18 IMPRESSION: Unremarkable chest radiograph. Abdomen/Pelvis CTA 07/31/22 12:24 IMPRESSION: 1. The abdominal aorta and all major branches in the abdomen and pelvis are widely patent. No aneurysm or dissection noted. 2. No mass, lymphadenopathy or acute finding in the abdomen or pelvis. 3. Enlarged uterus probably containing small fibroids. Fluid in the endometrial cavity. 1.78 cm cyst in the right ovary. 4. Small cystic structure is seen in the region of the gallbladder fossa that may represent a dilated cystic duct remanent or hepatic cyst.. This measures about 2.2 cm at greatest diameter. Laboratory Results WBC 4.3 10^3/uL (4.0-10.0) 08/01/22 04:30 RBC 3.62 10^6/uL (4.1-5.3) L 08/01/22 04:30 Hgb 10.5 g/dL (11.5-15.3) L 08/01/22 04:30 Hct 32.6 % (37.0-47.0) L 08/01/22 04:30 MCV 90.1 fl (81-99) 08/01/22 04:30 MCH 29.0 pg (28.0-34.0) 08/01/22 04:30 MCHC 32.2 g/dL (30.0-36.0) 08/01/22 04:30 RDW 13.5 % (12.1-15.1) 08/01/22 04:30 Plt Count 240 10^3/cmm (130-400) 08/01/22 04:30 MPV 10.1 fL (7.4-10.4) 08/01/22 04:30 Neut % (Auto) 61.1 % 08/01/22 04:30 Lymph % (Auto) 28.8 % 08/01/22 04:30 [place] % (Auto) 8.3 % 08/01/22 04:30 Eos % (Auto) 1.4 % 08/01/22 04:30 Baso % (Auto) 0.2 % 08/01/22 04:30 Neut # (Auto) 2.65 10^3/uL (1.8-7.7) 08/01/22 04:30 Lymph # (Auto) 1.3 10^3/uL (0.8-4.8) 08/01/22 04:30 [place] # (Auto) 0.4 10^3/uL (0.2-0.9) 08/01/22 04:30 Eos # (Auto) 0.1 10^3/uL (0.0-0.8) 08/01/22 04:30 Baso # (Auto) 0.0 10^3/uL (0.0-0.1) 08/01/22 04:30 Nucleated RBC % (auto) 0 % 08/01/22 04:30 Nucleated RBCs # 0.0 /100WBC 08/01/22 04:30 PT 12.60 SECONDS (12.1-14.9) 07/31/22 12:14 INR 0.92 (0.8-1.2) 07/31/22 12:14 APTT 24.0 SECONDS (23.9-36.7) 07/31/22 12:14 Sodium 138 mmol/L (136-145) 08/01/22 04:30 Potassium 3.1 mmol/L (3.5-5.1) L 08/01/22 04:30 Chloride 107 mmol/L (98-107) 08/01/22 04:30 Carbon Dioxide 21 mmol/L (22-29) L 08/01/22 04:30 Anion Gap 13.1 (5-19) 08/01/22 04:30 BUN 7 mg/dL (6-20) 08/01/22 04:30 Creatinine 0.6 mg/dL (0.5-0.9) 08/01/22 04:30 GFR Calculation 109.6 mL/min (90-130) 08/01/22 04:30 Glucose 121 mg/dL (65-115) H 08/01/22 04:30 Estimat Average Glucose 131 07/31/22 12:14 Hemoglobin A1c 6.2 % (4.0-6.0) H 07/31/22 12:14 Calculated Osmolality 285 mOsm/kg (285-295) 08/01/22 04:30 Calcium 7.3 mg/dL (8.5-10.5) L 08/01/22 04:30 Magnesium 1.7 mg/dL (1.7-2.3) 08/01/22 04:30 Total Bilirubin 0.2 mg/dL (0.15-1.2) 08/01/22 04:30 AST 107 U/L (0-32) H 08/01/22 04:30 ALT 105 U/L (0-33) H 08/01/22 04:30 Alkaline Phosphatase 121 U/L (35-105) H 08/01/22 04:30 Total Protein 5.4 g/dL (6.6-8.7) L D 08/01/22 04:30 Albumin 3.3 g/dL (3.5-5.2) L 08/01/22 04:30 Globulin 2.1 g/dL (1.3-4.6) 08/01/22 04:30 Lipase 16 U/L (13-60) 07/31/22 12:14 HCG, Qual Negative (Negative) 07/31/22 12:34 Urine Color Yellow (Yellow) 07/31/22 13:49 Urine Appearance Clear (CLEAR) 07/31/22 13:49 Urine pH 5 (5-7) 07/31/22 13:49 Ur Specific [place] 1.025 (1.005-1.030) 07/31/22 13:49 Urine Protein Neg (Negative) 07/31/22 13:49 Urine Glucose (UA) Norm (Normal) 07/31/22 13:49 Urine Ketones 1+ (Negative) H 07/31/22 13:49 Urine Blood Neg (Negative) 07/31/22 13:49 Urine Nitrate Negative (Negative) 07/31/22 13:49 Urine Bilirubin Neg (Negative) 07/31/22 13:49 Urine Urobilinogen Neg mg/dL (Negative) 07/31/22 13:49 Ur Leukocyte Esterase Negative (Negative) 07/31/22 13:49 Gastric Occult Blood Negative (Negative) 07/31/22 12:34 Acetaminophen < 5.0 ug/mL (10-30) L 07/31/22 12:14 Ethyl Alcohol < 10 mg/dL (0-10) 07/31/22 17:17 Coronavirus 229E (PCR) Not detected (NOT DETECT) 07/31/22 15:34 H. pylori IgG Antibody Negative (Negative) 07/31/22 15:23 Hepatitis A IgM Ab Non-reactive (Nonreactive) 07/31/22 12:14 Hep Bs Antigen Non-reactive (Nonreactive) 07/31/22 12:14 Hep B Core IgM Ab Non-reactive (Nonreactive) 07/31/22 12:14 Hepatitis C Antibody Non-reactive (Nonreactive) 07/31/22 12:14 SARS-CoV-2 (PCR) Not detected (NOT DETECT) 07/31/22 15:34 Blood Type O Positive 07/31/22 12:14 Rho(D) Type Positive 07/31/22 12:14 Antibody Screen Negative 07/31/22 12:14 Vitals Last Vital Signs Temp 97.6 F 08/01/22 08:00 Pulse 98 08/01/22 08:15 Resp 16 08/01/22 08:15 BP 107/72 08/01/22 08:00 Pulse Ox 98 08/01/22 08:15 O2 Del Method 08/01/22 08:15 Discharge Plan Discharge Patient Disposition: Home Condition: Stable Prescriptions: New metronidazole 500 mg tablet 500 mg PO Q8H 3 Days Qty: 9 0RF ondansetron HCl 4 mg tablet 4 mg PO DAILY Qty: 14 0RF doxycycline monohydrate 100 mg Tablet 100 mg PO BID Qty: 6 0RF Continued topiramate [Topamax] 50 mg tablet 50 mg PO DAILY 30 Days Qty: 90 3RF venlafaxine 150 mg capsule,extended release 24hr 150 mg PO DAILY Rx Instructions: TAKE 1 CAPSULE BY MOUTH EVERY DAY pantoprazole [Protonix] 40 mg tablet,delayed release (DR/EC) 40 mg PO DAILY 30 Days Qty: 30 3RF meloxicam 15 mg Tablet 15 mg PO DAILY EpiPen 0.3 mg/0.3 mL Auto-Injector 0.3 mg IM Q4H PRN (Reason: Allergy Symptoms) Discharge Orders: Discharge Order (Routine); Ordered 08/01/22 Ordered By: Jef Chase Referrals: Mallory Waller FNP [Primary Care Provider] - 7-10 days Patient Instructions: Opioid Safety Discharge Attestations Time Spent in Discharge Care*: less than 30 min Quality Metrics Clinical Quality Measures [ No reported AMI, CVA or VTE this stay] Coding Level of Care Code Acute Chg FW DC note Diagnoses Nausea vomiting and diarrhea R11.2; R19.7 Transaminitis R74.01 Melanosis coli K63.89 Gastritis K29.70 Chronic diarrhea K52.9 Nausea and vomiting R11.2 Vertigo R42
[2022-08-01 09:54] LABS: Hematocrit 36.3 % (37.0-47.0); Hemoglobin 11.7 g/dL (11.5-15.3)
[2022-08-01] MEDS: potassium chloride ER 20 mEq Tablet 40 MEQ PO (10:31)
[2022-08-01] MEDS: topiramate 25 mg Tablet 50 MG PO (10:31)
[2022-08-01] MEDS: acetaminophen 325 mg Tablet 650 MG PO (10:31)
[2022-08-01 12:00] VITALS: BP 107/72; PULSE 95; RESP 18; TEMP 36.7; O2SAT 98
[2022-08-01 13:45] VITALS: BP 107/72; PULSE 95; RESP 18; TEMP 36.7; O2SAT 98
--- NOTE | 2022-08-01 13:57 | PC.NURSE ---
Discussed discharge with patient. Went over new medications, continued medications and follow up appointments. Verbalized understanding.
[2022-08-02 15:24] LABS: Anti-Nuclear Antibody Screen NEGATIVE (NEGATIVE)
== END 2022-08-01 13:45 | disposition home or self-care (01) ==
LOC: ER 16:42 → MEDSURG 17:59
PROVIDERS: Admitting Provider Internal Medicine; Emergency Provider Emergency Medicine; PCP Nurse Practitioner; Visit Provider Internal Medicine
DX: R11.2 Nausea with vomiting, unspecified (principal); K52.9 Noninfective gastroenteritis and colitis, unspecified; R74.01 Elevation of levels of liver transaminase levels; K63.89 Other specified diseases of intestine; K29.70 Gastritis, unspecified, without bleeding; R42 Dizziness and giddiness; K21.9 Gastro-esophageal reflux disease without esophagitis
CPT/HCPCS: 36415; 71045; 74174; 80053; 80074; 80307; 81003; 81025; 82271; 83036; 83516; 83690; 83735; 85014; 85018; 85025; 85610; 85730; 86038; 86677; 86850; 86900; 87338; 87635; 96361; 96372; 96374; 96375; 96376; 99285; C9113; G0378; J1650; J2405; J3010; J7030; Q9967

== ENCOUNTER → 2022-08-29 08:54 | Outpatient (BNVA) | payer MEDICAID, SELFPAY | PROVIDERS: PCP Nurse Practitioner; Visit Provider Nurse Practitioner Family | DX: A04.8 Other specified bacterial intestinal infections (principal) | CPT/HCPCS: 87338 ==

== ENCOUNTER 2024-01-22 08:11 | Outpatient (CLI) | payer OTHER, MEDICAID, SELFPAY ==
--- NOTE | 2024-01-22 08:18 | FL_ITS ---
WS: [id number] Barium swallow and esophagram, 01/22/2024 Clinical Data: DYSPHAGIA/GERD Comparison: Barium swallow, 06/23/2020 Fluoroscopy time: 0min [id number] # of spot films: 25 Findings: The patient swallowed the thick and thin barium, and it flowed through the hypopharynx without hesita tion. There was an extrinsic right 1 cm indentation on the hypopharynx as it entered the esophagus at the C7 level. No stricture, polyp or erosion was seen. The barium entered the esophagus and there was normal motility throughout. No hiatal hernia, reflux, stricture, polyp, mass, erosion or ulcer was noted. The barium passed normally into the stomach. FL/FL barium swallow [id number] Impression: 1. 1 cm extrinsic indentation onto the right side of the hypopharynx at the C7 level which could be from a thyroid nodule. 2. Negative esophagram.
== END 2024-01-22 08:12 | disposition home or self-care (01) ==
LOC: RAD 08:11
PROVIDERS: PCP Nurse Practitioner Family; Visit Provider Surgery
DX: R13.10 Dysphagia, unspecified (principal); K21.9 Gastro-esophageal reflux disease without esophagitis
CPT/HCPCS: 74220